=== PATIENT | female | born 1970 | race Caucasian/White ===

== ENCOUNTER 2020-01-25 11:30 | Outpatient (REF) | payer MEDICARE, MEDICAID, SELFPAY ==
[2020-01-26 10:59] LABS: BV Int Neg Control Negative (Negative); BV Int Pos Control Positive (Positive)
[2020-01-26 11:03] LABS: CT PCR NOT DETECTED (Not Detect.); NG PCR NOT DETECTED (Not Detect.)
[2020-01-28 07:42] LABS: HPV mRNA E6/E7 rflx Not Detected (Not Detected)
== END 2020-01-25 11:31 | disposition home or self-care (01) ==
LOC: HO.LAB 11:30
PROVIDERS: Visit Provider Advanced Practice Midwife
DX: Z01.419 Encounter for gynecological examination (general) (routine) without abnormal findings (principal); Z12.31 Encounter for screening mammogram for malignant neoplasm of breast; E66.9 Obesity, unspecified; F17.210 Nicotine dependence, cigarettes, uncomplicated; Z11.8 Encounter for screening for other infectious and parasitic diseases; Z11.3 Encounter for screening for infections with a predominantly sexual mode of transmission; Z80.41 Family history of malignant neoplasm of ovary
CPT/HCPCS: 87480; 87491; 87510; 87591; 87624; 87625; 87660; 88142

== ENCOUNTER 2020-02-08 15:07 | Outpatient (REF) | payer MEDICARE, MEDICAID, SELFPAY ==
--- NOTE | 2020-02-08 15:13 | US_ITS ---
EXAMINATION: ULTRASOUND PELVIS COMPLETE CLINICAL INFORMATION: Family history of ovarian cancer. COMPARISON: None TECHNIQUE: Transabdominal and transvaginal ultrasound the pelvis is performed. FINDINGS: The uterus is anteverted and anteflexed measuring 9.3 cm in length, 3.8 cm in AP and 5.9 cm in transverse dimension. Endometrial thickness is 0.32 cm. The uterus is homogeneous in echotexture. There are small nabothian cysts visualized. Right ovary measures 2.9 x 6.8 x 1.6 cm and volume 4.4 mL. There is a complex cyst or solid lesion measuring 2.0 x 1.7 x 1.7 cm. Left ovary is not seen. There is no free fluid in the cul-de-sac. US/US pelvic complete IMPRESSION: 1. Unremarkable uterus. 2. Complex cyst or solid mass right ovary. 3. Left ovary is not seen. 4. Consider follow-up ultrasound pelvis after 3 cycles.
--- NOTE | 2020-02-08 15:13 | US_ITS ---
EXAMINATION: ULTRASOUND PELVIS COMPLETE CLINICAL INFORMATION: Family history of ovarian cancer. COMPARISON: None TECHNIQUE: Transabdominal and transvaginal ultrasound the pelvis is performed. FINDINGS: The uterus is anteverted and anteflexed measuring 9.3 cm in length, 3.8 cm in AP and 5.9 cm in transverse dimension. Endometrial thickness is 0.32 cm. The uterus is homogeneous in echotexture. There are small nabothian cysts visualized. Right ovary measures 2.9 x 6.8 x 1.6 cm and volume 4.4 mL. There is a complex cyst or solid lesion measuring 2.0 x 1.7 x 1.7 cm. Left ovary is not seen. There is no free fluid in the cul-de-sac. US/US transvaginal IMPRESSION: 1. Unremarkable uterus. 2. Complex cyst or solid mass right ovary. 3. Left ovary is not seen. 4. Consider follow-up ultrasound pelvis after 3 cycles.
== END 2020-02-08 15:08 | disposition home or self-care (01) ==
LOC: HO.US 15:07
PROVIDERS: Visit Provider Advanced Practice Midwife
DX: Z01.419 Encounter for gynecological examination (general) (routine) without abnormal findings (principal); Z12.31 Encounter for screening mammogram for malignant neoplasm of breast; Z80.41 Family history of malignant neoplasm of ovary
CPT/HCPCS: 76830; 76856

== ENCOUNTER 2020-03-17 12:57 | Outpatient (REF) | payer MEDICARE, MEDICAID, SELFPAY ==
--- NOTE | 2020-03-17 13:01 | MM_ITS ---
EXAMINATION: MM SCREENING DIGITAL BREAST TOMOSYNTHESIS, BILATERAL CLINICAL INFORMATION: Screening. Asymptomatic. The lifetime risk of breast cancer based on the Tyrer-Cuzick Model is 11%. COMPARISON: Mammography: 08/18/2018, 01/14/2013, 06/22/2012 TECHNIQUE: Digital breast tomosynthesis is performed in both the craniocaudal and mediolateral oblique views along with computer-aided detection (CAD). Synthesized 2D images are generated from the tomosynthesis. FINDINGS: There are scattered areas of fibroglandular density (ACR BI-RADS breast composition Category b). Breast tissue composition borders on predominantly fatty. There are no significant masses, abnormal calcifications, or other abnormalities. There is low lying axillary tail node on the left similar to prior exams. MM/MM tomosynthesis screening BI IMPRESSION: No mammographic evidence of malignancy. ASSESSMENT: BI-RADS 2: Benign RECOMMENDATION: Routine annual mammography screening. This patient's information was entered into a reminder system with a target due date for their next mammogram.
== END 2020-03-17 12:58 | disposition home or self-care (01) ==
LOC: HO.MAMMO 12:57
PROVIDERS: Visit Provider Advanced Practice Midwife
DX: Z12.31 Encounter for screening mammogram for malignant neoplasm of breast (principal)
CPT/HCPCS: 77063; 77067

== ENCOUNTER 2020-05-07 10:57 | Outpatient (REF) | payer MEDICARE, MEDICAID, SELFPAY ==
--- NOTE | ~2020-05-07 | US_ITS ---
EXAMINATION: PELVIC ULTRASOUND CLINICAL INFORMATION: Family history of ovarian cancer COMPARISON: Previous exam February 2020 TECHNIQUE: Transabdominal and transvaginal pelvic ultrasound was performed. Transvaginal exam was performed for better visualization of the uterus and ovaries. FINDINGS: The inverted and measures 7.3 x 4 x 4.5 cm in dimension. No focal uterine lesion is seen. Endometrial thickness is normal measuring 0.9 cm. There are nabothian cysts in the cervix. The right ovary measures 2.2 x 2.1 x 2.5 cm. There is a 1.7 x 1.1 x 1.3 cm complex right ovarian cyst. This is irregularly shaped, has a slightly thickened wall and focal area of echogenic wall thickening. This probably represents an involuting cyst. The left ovary measures 1.8 x 1.2 x 1.5 cm. There may be a small calcification in the left ovary. There is no fluid in the pelvis. US/US transvaginal IMPRESSION: 1.7 x 1.1 x 1.3 cm irregularly-shaped complex right ovarian cyst probably representing an involuting cyst.
--- NOTE | ~2020-05-07 | US_ITS ---
EXAMINATION: PELVIC ULTRASOUND CLINICAL INFORMATION: Family history of ovarian cancer COMPARISON: Previous exam February 2020 TECHNIQUE: Transabdominal and transvaginal pelvic ultrasound was performed. Transvaginal exam was performed for better visualization of the uterus and ovaries. FINDINGS: The inverted and measures 7.3 x 4 x 4.5 cm in dimension. No focal uterine lesion is seen. Endometrial thickness is normal measuring 0.9 cm. There are nabothian cysts in the cervix. The right ovary measures 2.2 x 2.1 x 2.5 cm. There is a 1.7 x 1.1 x 1.3 cm complex right ovarian cyst. This is irregularly shaped, has a slightly thickened wall and focal area of echogenic wall thickening. This probably represents an involuting cyst. The left ovary measures 1.8 x 1.2 x 1.5 cm. There may be a small calcification in the left ovary. There is no fluid in the pelvis. US/US pelvic complete IMPRESSION: 1.7 x 1.1 x 1.3 cm irregularly-shaped complex right ovarian cyst probably representing an involuting cyst.
== END 2020-05-07 10:58 | disposition home or self-care (01) ==
LOC: HO.US 10:57
PROVIDERS: Visit Provider Advanced Practice Midwife
DX: N83.291 Other ovarian cyst, right side (principal); Z80.41 Family history of malignant neoplasm of ovary
CPT/HCPCS: 76830; 76856

== ENCOUNTER → 2020-05-16 07:44 | Outpatient (BNVA) | payer MEDICARE, MEDICAID, SELFPAY | PROVIDERS: PCP Internal Medicine; Visit Provider Physician Assistant | DX: Z13.89 Encounter for screening for other disorder (principal) | CPT/HCPCS: Q3014 ==

== ENCOUNTER → 2020-05-21 11:05 | Outpatient (BNVA) | payer MEDICARE, MEDICAID, SELFPAY | PROVIDERS: PCP Internal Medicine; Visit Provider Advanced Practice Midwife | DX: Z13.89 Encounter for screening for other disorder (principal) | CPT/HCPCS: Q3014 ==

== ENCOUNTER 2020-06-07 12:29 | Day surgery (SDC) | payer MEDICARE, MEDICAID, SELFPAY ==
[2020-06-01 11:23] VITALS: BMI 31.3
--- NOTE | 2020-06-06 10:07 | HO.ANESPROP2 ---
Documented by User: Aydee Perez 06/06/20 10:08 HPI - Anesthesia Eval Consult details Narrative: 49yo F for Upper Endoscopy and Colonoscopy PMFSH Active Problems Active Problems: All Active Problems (Updated 05/16/20 @ 08:45 by Kacy Yeh PA-C) Anxiety and depression (Acute) Encounter for screening colonoscopy (Acute) Nausea & vomiting (Acute) Ovarian mass, right (Acute) Obesity (BMI 30-39.9) (Acute) Cigarette smoker motivated to quit (Acute) Encounter for screening mammogram for malignant neoplasm of breast (Acute) Potential exposure to STD (Acute) Family hx of ovarian malignancy (Acute) Well woman exam with routine gynecological exam (Acute) Past Medical History Medical History Anxiety and depression Cigarette smoker motivated to quit Nausea & vomiting Obesity (BMI 30-39.9) Family History Family History Sister Ovarian cancer Colon cancer Paternal Grandmother History of breast cancer Surgical History Surgical History H/O foot surgery H/O hernia repair H/O lumpectomy Social History Social History Household Members: Family and Children Alcohol intake: current Alcohol intake frequency: holidays/special occasions only Smoking Status: Current every day smoker Tobacco Type: Cigarette Cigarettes Per Day: 10 Substance Use Type: Marijuana Advance Directives Date on File: 06/07/20 Current occupational status: unemployed Sexual orientation: Straight/Heterosexual Gender identity: female Meds Allergies Allergy/AdvReac Type Severity Reaction Status Date / Time No Known Allergies Allergy Verified 06/07/20 12:47 Home Medications Medication Instructions Recorded Confirmed Last Taken Type ascorbate calcium (vitamin C) 500 500 mg PO DAILY 04/16/20 05/21/20 06/07/20 05:00 History mg tablet calcium carbonate 300 mg (750 mg) 300 mg PO BID 04/16/20 05/21/20 06/07/20 05:00 History chewable tablet cbd oil BUCCAL 04/16/20 05/21/20 06/07/20 05:00 History cholecalciferol (vitamin D3) 50 50 mcg PO DAILY 04/16/20 05/21/20 06/07/20 05:00 History mcg (2,000 unit) capsule multivitamin 1 tab PO DAILY 04/16/20 05/21/20 Unknown History zinc acetate 50 mg (zinc) capsule 50 mg PO DAILY 04/16/20 05/21/20 06/07/20 05:00 History methadone 110 mg PO DAILY 06/07/20 06/07/20 Unknown History Exam Exam Date and Time: June 06, 2020 1007 Height,Weight and Vital Signs: Height 5 ft 7 in Weight 90.718 kg Assessment and Plan Assessment Anesthesia Assessment: Chart Reviewed Documented by User: Jaimee Gruber 06/13/20 13:12 PMFSH Past Medical History Medical History Anxiety and depression Cigarette smoker motivated to quit Nausea & vomiting Obesity (BMI 30-39.9) Family History Family History Sister Ovarian cancer Colon cancer Paternal Grandmother History of breast cancer Family history of problems with anesthesia: No Surgical History Surgical History H/O foot surgery H/O hernia repair H/O lumpectomy History of Problems with Anesthesia: No Social History Social History Household Members: Family and Children Alcohol intake: current Alcohol intake frequency: holidays/special occasions only Smoking Status: Current every day smoker Tobacco Type: Cigarette Cigarettes Per Day: 10 Substance Use Type: Marijuana Advance Directives Date on File: 06/07/20 Current occupational status: unemployed Sexual orientation: Straight/Heterosexual Gender identity: female Meds Allergies Allergy/AdvReac Type Severity Reaction Status Date / Time No Known Allergies Allergy Verified 06/07/20 12:47 Home Medications Medication Instructions Recorded Confirmed Last Taken Type ascorbate calcium (vitamin C) 500 500 mg PO DAILY 04/16/20 05/21/20 06/07/20 05:00 History mg tablet calcium carbonate 300 mg (750 mg) 300 mg PO BID 04/16/20 05/21/20 06/07/20 05:00 History chewable tablet cbd oil BUCCAL 04/16/20 05/21/20 06/07/20 05:00 History cholecalciferol (vitamin D3) 50 50 mcg PO DAILY 04/16/20 05/21/20 06/07/20 05:00 History mcg (2,000 unit) capsule multivitamin 1 tab PO DAILY 04/16/20 05/21/20 Unknown History zinc acetate 50 mg (zinc) capsule 50 mg PO DAILY 04/16/20 05/21/20 06/07/20 05:00 History methadone 110 mg PO DAILY 06/07/20 06/07/20 Unknown History Exam Height,Weight and Vital Signs: Vital Signs Temp Pulse Resp BP Pulse Ox 06/07/20 13:02 97.6 F 72 18 102/58 L 91 L Sats 89-91 on room air- up to 97% with deep breathing. No fever. Patient denies cough. Breathing not labored. Some wheezing on auscultation. Albuterol treatment ordered. S/p albuterol treatment, sats still drifting down to 88. Patient states tested for covid about 3 weeks ago as was going to [place] to visit mother. Test was negative. Not aware of contact or exposure to any sick patient. Patient placed on 2-3L NC. Covid test ordered and done. Negative. OK to proceed with procedure as asymptomatic. If low sats persist, may need to folow up with PCP as outpatient Airway Mallampati Class: II TM Dist: >3cm Neck ROM: Full Heart: RRR Lungs: CTAB Assessment and Plan Assessment Anesthesia Assessment: Anesthesia Plan Discussed and Chart Reviewed Final Anesthetic Review NPO: Yes ASA Class: III Final Preanesthetic Review: No Changes in Pt Med Stat, Meds/Allgs Chart Reviewed, Consent Obtained/Reviewed and Anes Risks/Benef Reviewed Patient Risk: Low Procedure Risk: Low Assessment/Block/Sedation in SS: Assess/Block/Sedation-SS Anesthetic Plan Anesthetic Plan: MAC: Disposition: Standard PACU Documented by User: Andre Hollis 06/07/20 14:32 COUNTS INCLUDE 234 BEDS AT THE [facility] Past Medical History Medical History Anxiety and depression Cigarette smoker motivated to quit Nausea & vomiting Obesity (BMI 30-39.9) Family History Family History Sister Ovarian cancer Colon cancer Paternal Grandmother History of breast cancer Surgical History Surgical History H/O foot surgery H/O hernia repair H/O lumpectomy Social History Social History Household Members: Family and Children Alcohol intake: current Alcohol intake frequency: holidays/special occasions only Smoking Status: Current every day smoker Tobacco Type: Cigarette Cigarettes Per Day: 10 Substance Use Type: Marijuana Advance Directives Date on File: 06/07/20 Current occupational status: unemployed Sexual orientation: Straight/Heterosexual Gender identity: female Meds Allergies Allergy/AdvReac Type Severity Reaction Status Date / Time No Known Allergies Allergy Verified 06/07/20 12:47 Home Medications Medication Instructions Recorded Confirmed Last Taken Type ascorbate calcium (vitamin C) 500 500 mg PO DAILY 04/16/20 05/21/20 06/07/20 05:00 History mg tablet calcium carbonate 300 mg (750 mg) 300 mg PO BID 04/16/20 05/21/20 06/07/20 05:00 History chewable tablet cbd oil BUCCAL 04/16/20 05/21/20 06/07/20 05:00 History cholecalciferol (vitamin D3) 50 50 mcg PO DAILY 04/16/20 05/21/20 06/07/20 05:00 History mcg (2,000 unit) capsule multivitamin 1 tab PO DAILY 04/16/20 05/21/20 Unknown History zinc acetate 50 mg (zinc) capsule 50 mg PO DAILY 04/16/20 05/21/20 06/07/20 05:00 History methadone 110 mg PO DAILY 06/07/20 06/07/20 Unknown History Exam Airway Mallampati Class: III TM Dist: >3cm Neck ROM: Full Heart: [id number] Lungs: decreasebreath sounds b/l Assessment and Plan Assessment Anesthesia Assessment: Anesthesia Plan Discussed, PAT Visit and Chart Reviewed Final Anesthetic Review NPO: Yes ASA Class: II Final Preanesthetic Review: No Changes in Pt Med Stat, Meds/Allgs Chart Reviewed, Consent Obtained/Reviewed and Anes Risks/Benef Reviewed Patient Risk: Intermediate Procedure Risk: Low Assessment/Block/Sedation in SS: Assess/Block/Sedation-SS Anesthetic Plan Anesthetic Plan: MAC: and Regional Block Disposition: Standard PACU
[2020-06-07 13:02] VITALS: BP 102/58; PULSE 72; RESP 18; TEMP 36.4; O2SAT 91
--- NOTE | 2020-06-07 13:12 | PC.NURSE ---
DR. MARSHALL FROM ANESTHESIA ASSESSED PATIENT R/T HER O2 SATS 91 PERCENT RA. 02 SATS CAME UP WITH DEEP BREATHING. LUNGS SOUNDS WITH SOME WHEEZING. NEBULIZER TXMENT ORDERED.
[2020-06-07] MEDS: Albuterol Sulfate (0.083%) 2.5 MG/3 ML VIAL.NEB INHALE (13:30)
--- NOTE | 2020-06-07 13:35 | MHC.SHP ---
Pre-Procedural Eval Section B Chief Complaint: screening,nausea Details of Present Illness: FH of ovarian and colon cancer in sister, unknown if she had drake syndrome Relevant Family History (Specify if Yes): Yes Relevant Social History: Tobacco Use Present Medications: see Short Stay Collaborative assessment Medical History: Significant History (Anxiety and depression Cigarette smoker motivated to quit Nausea & vomiting Obesity (BMI 30-39.9)) History of Previous Operations: Relevant previous surgery/procedure and date(s) (H/O foot surgery H/O hernia repair H/O lumpectomy) Allergies: Allergies Allergy/AdvReac Type Severity Reaction Status Date / Time No Known Allergies Allergy Verified 06/07/20 12:47 Review of Systems Sugical H&P ROS: Negative: Constitution, Cardiovascular, Respiratory, Neurological, Psychiatric, Hem-Onc, Allergic/Immunologic, Gastrointestinal, Genitourinary, Musculoskeletal, Integumentary, Endocrine and Eyes/Ears/Nose/Throat Exam Surgical H&P Exam: Normal: HEENT, Normal: Heart, Normal: Lungs, Normal: Extremities, Normal: Abdomen, Normal: Skin and Normal: Neurological Plan Diagnosis/Plan: Unchanged I have reviewed the history and physical and performed a pertinent physical examination on my patient. No changes have occurred unless specified.
--- NOTE | 2020-06-07 13:37 | PM.OP ---
Brief Operative Note Date of Service: 06/07/20 Pre-op diagnosis: nausea, FH of ovarian and colon ca Post-op diagnosis: same Procedure: see op note Surgeon: Dino Tang MD Anesthesia: MAC Estimated blood loss (mL): 0 Condition: stable Disposition: PACU
--- NOTE | 2020-06-07 13:38 | W.PM.OPN ---
Operative Note Operative Note Date of Service: 06/07/20 Narrative: EGD not done today due to cold sx and borderline O2 sats COLONOSCOPY Instrument: Olympus variable stiffness ADULT scope 190L Colonoscopy Monitoring: Vital signs and clinical assessment, continuous EKG monitoring, Pulse oximetry, Carbon Dioxide monitoring and blood pressure monitoring were done throughout the procedure. Colon withdrawal time was 25 minutes. Procedure: The patient was placed in the left lateral decubitis position and pre-procedure medications were administered. After a digital rectal examination of the ano-rectum, the video colonoscope was inserted into the rectum and advanced through the colon to the cecum/TI. The colonoscope was slowly withdrawn in a retrograde panoramic fashion and the colon mucosa was carefully examined including a retroflexed view of the rectum. Findings and interventions are described below. Procedure Difficulty:easy Findings: Terminal Ileum-normal Cecum:normal Ascending Colon: normal Transverse Colon -normal Descending Colon:normal Sigmoid Colon: normal Rectum: Retroflexion with small internal hemorrhoids, grade I Anorectum - normal Colon preparation: [place] Bowel Preparation Scale Right colon; 2 Transverse colon: 1 Left colon; 1 (0 = Unprepared colon segment with mucosa not seen due to solid stool that cannot be cleared. 1 = Portion of mucosa of the colon segment seen, but other areas of the colon segment not well seen due to staining, residual stool and/or opaque liquid. 2 = Minor amount of residual staining, small fragments of stool and/or opaque liquid, but mucosa of colon segment seen well. 3 = Entire mucosa of colon segment seen well with no residual staining, small fragments of stool or opaque liquid) Impression and Post Procedure Diagnosis: Colonoscopy Findings: internal hemorrhoids poor prep inspite of extensive cleansing Plan: Repeat Colonoscopy in 6 months or earlier if clinically indicated High fiber diet leaflet avoid straining at stool, epsom salts and sitz bath, anusol supps or cream as needed review prep instructions Above findings were reviewed with the patient and relevant handouts were provided if indicated.
[2020-06-07 13:41] VITALS: PULSE 60; O2SAT 88
--- NOTE | 2020-06-07 13:42 | PC.NURSE ---
PATIENT RECEIVING A RESPIRATORY TREATMENT AT THIS TIME. PATIENT MOVED TO THE ISOLATION ROOM TO RECEIVE HER TREATMENT.
--- NOTE | 2020-06-07 13:53 | PC.NURSE ---
PATIENT RECEIVED A NEBULIZER TREATMENT PER ORDER. 02 SATS RA [address]%. [address] MARSHALL ORDERED A CXR.
--- NOTE | 2020-06-07 14:03 | PC.NURSE ---
PATIENT PLACED ON 02 2LPM VIA NC R/T 02 SATS 90 TO 92%.
--- NOTE | 2020-06-07 14:14 | PC.NURSE ---
RAPID COVID TEST COMPLETED AND BROUGHT TO LAB.
[2020-06-07 14:36] LABS: COVID-19 Test Negative (Negative); IDNOW Serial# 9DD0AD1C
--- NOTE | 2020-06-07 14:38 | PC.NURSE ---
COVID NEGATIVE. PT GOING INTO PROCEDURE.
[2020-06-07] MEDS: Lactated Ringers 1,000 ML 100 ML IVCONT (14:40)
[2020-06-07 15:29] VITALS: BP 93/43; PULSE 56; RESP 14; TEMP 36.8; O2SAT 91
[2020-06-07 15:44] VITALS: BP 109/61; PULSE 59; RESP 18; O2SAT 96
[2020-06-07 15:59] VITALS: BP 110/71; PULSE 58; RESP 20; TEMP 36.9; O2SAT 93
== END 2020-06-07 16:39 | disposition home or self-care (01) ==
PROVIDERS: Anesthesiology; PCP Internal Medicine; Visit Provider Internal Medicine Gastroenterology
PROC: (CPT G0105; principal; 2020-06-07 13:40)
DX: Z12.11 Encounter for screening for malignant neoplasm of colon (principal); Z80.0 Family history of malignant neoplasm of digestive organs; K64.0 First degree hemorrhoids; J00 Acute nasopharyngitis [common cold]; R09.02 Hypoxemia; E66.9 Obesity, unspecified; F17.210 Nicotine dependence, cigarettes, uncomplicated; Z20.822 Contact with and (suspected) exposure to COVID-19
CPT/HCPCS: G0105; 36415; 87635; 94640; 94644; J3010

== ENCOUNTER → 2020-06-28 13:00 | Outpatient (BNVA) | payer MEDICARE, MEDICAID, SELFPAY | PROVIDERS: PCP Internal Medicine; Visit Provider Physician Assistant | DX: Z13.89 Encounter for screening for other disorder (principal) | CPT/HCPCS: Q3014 ==

== ENCOUNTER 2021-02-27 10:25 | Outpatient (REF) | payer MEDICARE, MEDICAID, SELFPAY ==
[2021-02-27 15:23] LABS: CT PCR NOT DETECTED (Not Detect.); NG PCR NOT DETECTED (Not Detect.)
[2021-02-28 09:35] LABS: BV Int Neg Control Negative (Negative); BV Int Pos Control Positive (Positive)
== END 2021-02-27 10:26 | disposition home or self-care (01) ==
LOC: HO.LAB 10:25
PROVIDERS: PCP Internal Medicine; Visit Provider Advanced Practice Midwife
DX: Z01.411 Encounter for gynecological examination (general) (routine) with abnormal findings (principal); N83.8 Other noninflammatory disorders of ovary, fallopian tube and broad ligament; Z20.2 Contact with and (suspected) exposure to infections with a predominantly sexual mode of transmission; Z80.41 Family history of malignant neoplasm of ovary; Z87.891 Personal history of nicotine dependence
CPT/HCPCS: 87480; 87491; 87510; 87591; 87660

== ENCOUNTER 2021-09-03 08:49 | Outpatient (REF) | payer MEDICARE, MEDICAID, SELFPAY ==
--- NOTE | ~2021-09-03 | XR_ITS ---
EXAMINATION: XR HAND, RIGHT XR HAND, LEFT CLINICAL INFORMATION: Primary osteoarthritis hand. COMPARISON: None TECHNIQUE: Right hand is imaged in 4 views. The left hand is imaged in 3 views. There are total of 7 views. FINDINGS: Right: Normal bony mineralization. No periarticular demineralization. No fracture or destructive process. Ulnar variance is neutral. The carpus shows no joint narrowing or erosive changes or chondrocalcinosis. The MCP joints show no narrowing or erosive change. The interphalangeal joints are unremarkable. Left: Normal bony mineralization. No periarticular demineralization. No fracture or destructive process. Ulnar variance is neutral. The carpus shows no joint narrowing or erosive changes or chondrocalcinosis. The MCP joints show no narrowing or erosive change. The interphalangeal joints are unremarkable. XR/XR hand RT min 3V IMPRESSION: No focal joint narrowing or erosive change.
--- NOTE | ~2021-09-03 | XR_ITS ---
EXAMINATION: XR HAND, RIGHT XR HAND, LEFT CLINICAL INFORMATION: Primary osteoarthritis hand. COMPARISON: None TECHNIQUE: Right hand is imaged in 4 views. The left hand is imaged in 3 views. There are total of 7 views. FINDINGS: Right: Normal bony mineralization. No periarticular demineralization. No fracture or destructive process. Ulnar variance is neutral. The carpus shows no joint narrowing or erosive changes or chondrocalcinosis. The MCP joints show no narrowing or erosive change. The interphalangeal joints are unremarkable. Left: Normal bony mineralization. No periarticular demineralization. No fracture or destructive process. Ulnar variance is neutral. The carpus shows no joint narrowing or erosive changes or chondrocalcinosis. The MCP joints show no narrowing or erosive change. The interphalangeal joints are unremarkable. XR/XR hand LT min 3V IMPRESSION: No focal joint narrowing or erosive change.
== END 2021-09-03 08:50 | disposition home or self-care (01) ==
LOC: HO.XRAY 08:49
PROVIDERS: PCP Internal Medicine; Visit Provider Internal Medicine Rheumatology
DX: M19.041 Primary osteoarthritis, right hand (principal); M19.042 Primary osteoarthritis, left hand; R20.0 Anesthesia of skin; Z79.899 Other long term (current) drug therapy
CPT/HCPCS: 73130; 99202

== ENCOUNTER 2021-11-21 10:12 | Outpatient (REF) | payer MEDICARE, MEDICAID, SELFPAY ==
[2021-11-22 13:02] LABS: BV Int Neg Control Negative (Negative); BV Int Pos Control Positive (Positive)
[2021-11-22 13:03] LABS: CT PCR NOT DETECTED (Not Detect.); NG PCR NOT DETECTED (Not Detect.)
== END 2021-11-21 10:13 | disposition home or self-care (01) ==
LOC: HO.LNP 10:12
PROVIDERS: Visit Provider Advanced Practice Midwife
DX: Z11.3 Encounter for screening for infections with a predominantly sexual mode of transmission (principal); N95.1 Menopausal and female climacteric states; N93.9 Abnormal uterine and vaginal bleeding, unspecified; N83.8 Other noninflammatory disorders of ovary, fallopian tube and broad ligament; Z80.41 Family history of malignant neoplasm of ovary
CPT/HCPCS: 87480; 87491; 87510; 87591; 87660; 99212

== ENCOUNTER 2021-12-12 13:14 | Outpatient (REF) | payer MEDICARE, MEDICAID, SELFPAY ==
--- NOTE | 2021-12-12 10:00 | EMG_ITS ---
Bilateral median and ulnar motor and sensory studies were performed. Bilateral radial sensory studies were performed and paraspinal muscles were tested with a needle. IMPRESSION: 1. 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 2. Bilateral Otoniel Price anastomosis, normal variant. MD CLOVER Hull/MARGUERITE / [id number]
== END 2021-12-12 13:15 | disposition home or self-care (01) ==
LOC: HO.NEURO 13:14
PROVIDERS: Visit Provider Internal Medicine Rheumatology
DX: R20.0 Anesthesia of skin (principal)
CPT/HCPCS: 95886; 95911

== ENCOUNTER 2022-01-06 10:58 | Outpatient (REF) | payer MEDICARE, MEDICAID, SELFPAY ==
--- NOTE | ~2022-01-06 | US_ITS ---
EXAMINATION: US PELVIS CLINICAL INFORMATION: Follow-up ovarian cyst COMPARISON: Previous pelvic ultrasound May 2020 TECHNIQUE: Ultrasound of the pelvis is performed using both transabdominal and transvaginal transducers along with Doppler. Transvaginal imaging is performed due to inadequate visualization transabdominally. FINDINGS: The uterus is anteverted and measures 7.8 x 4 x 4.9 cm in dimension. There is a 1.1 x 1 x 0.9 cm hypoechoic lesion in the left upper uterine body suggestive of a fibroid. No other focal uterine lesion. Endometrial thickness is normal measuring 1.3 cm. There are small nabothian cysts in the cervix. The right ovary is not seen. The left ovary measures 1.6 x 1.7 x 1.8 cm. There is a small nonspecific echogenic focus in the left ovary. This is similar to May 2020 exam and may represent a small calcification. There is no fluid in the pelvis. US/US pelvic and transvaginal IMPRESSION: Right ovary not seen. No right adnexal or left ovarian cyst. Small uterine fibroid.
== END 2022-01-06 10:59 | disposition home or self-care (01) ==
LOC: HO.US 10:58
PROVIDERS: Visit Provider Advanced Practice Midwife
DX: N83.8 Other noninflammatory disorders of ovary, fallopian tube and broad ligament (principal); N93.9 Abnormal uterine and vaginal bleeding, unspecified; N95.1 Menopausal and female climacteric states; Z80.41 Family history of malignant neoplasm of ovary
CPT/HCPCS: 76830; 76856

== ENCOUNTER 2022-01-11 09:36 | Outpatient (REF) | payer MEDICARE, MEDICAID, SELFPAY ==
[2022-01-13 05:16] LABS: HBsAGNum1 0.16 S/CO (0.00-0.99); HIV AB/AG Nonreactive (Nonreactive); HIV Num 1 0.07 S/CO (0.00-0.99); Hepatitis B Surface Antigen Negative (Negative); ~HepC Num1 2.35 S/CO (0.00-0.79); ~Hepatitis C Antibody Reactive (Nonreactive)
[2022-01-13 05:33] LABS: Syphilis Screen Nonreactive (Nonreactive)
== END 2022-01-11 09:37 | disposition home or self-care (01) ==
LOC: HO.LAB 09:36
PROVIDERS: PCP Internal Medicine; Visit Provider Advanced Practice Midwife
DX: Z01.419 Encounter for gynecological examination (general) (routine) without abnormal findings (principal); Z11.4 Encounter for screening for human immunodeficiency virus [HIV]
CPT/HCPCS: 36415; 86780; 86803; 87340; 87389

== ENCOUNTER 2022-01-15 09:43 | Outpatient (REF) | payer MEDICARE, MEDICAID, SELFPAY | END 2022-01-15 09:44 | disposition home or self-care (01) | LOC: HO.LNP 09:43 | PROVIDERS: Visit Provider Advanced Practice Midwife | DX: N93.9 Abnormal uterine and vaginal bleeding, unspecified (principal) | CPT/HCPCS: 58100; 81025; 88305; 99212 ==

== ENCOUNTER → 2022-01-20 09:55 | Outpatient (BNVA) | payer MEDICARE, MEDICAID, SELFPAY | PROVIDERS: PCP Internal Medicine; Visit Provider Advanced Practice Midwife | DX: N95.1 Menopausal and female climacteric states (principal); N93.9 Abnormal uterine and vaginal bleeding, unspecified | CPT/HCPCS: Q3014 ==

== ENCOUNTER 2022-05-30 08:19 | Outpatient (REF) | payer MEDICARE, MEDICAID, SELFPAY ==
--- NOTE | ~2022-05-30 | MM_ITS ---
EXAMINATION: MM SCREENING DIGITAL BREAST TOMOSYNTHESIS, BILATERAL CLINICAL INFORMATION: Screening. Asymptomatic. The lifetime risk of breast cancer based on the Tyrer-Cuzick Model is 6%. COMPARISON: Mammography: 03/17/2020, 08/18/2018, 01/14/2013, 06/22/2012 TECHNIQUE: Digital breast tomosynthesis is performed in both the craniocaudal and mediolateral oblique views along with computer-aided detection (CAD). Synthesized 2D images are generated from the tomosynthesis. FINDINGS: There are scattered areas of fibroglandular density (ACR BI-RADS breast composition Category b). There are no significant masses, abnormal calcifications, or other abnormalities. Background stromal and fibroglandular densities are similar to prior studies. No developing density. No architectural abnormality. The axilla and skin contours are unremarkable. MM/MM tomosynthesis screening BI IMPRESSION: No mammographic evidence of malignancy. ASSESSMENT: BI-RADS 1: Negative RECOMMENDATION: Routine annual mammography screening. This patient's information was entered into a reminder system with a target due date for their next mammogram.
== END 2022-05-30 08:20 | disposition home or self-care (01) ==
LOC: HO.MAMMO 08:19
PROVIDERS: PCP Internal Medicine; Visit Provider Internal Medicine
DX: Z12.31 Encounter for screening mammogram for malignant neoplasm of breast (principal)
CPT/HCPCS: 77063; 77067

== ENCOUNTER 2022-11-18 11:13 | Outpatient (AMB) | payer MEDICARE, MEDICAID, SELFPAY ==
[2022-11-18 11:16] VITALS: BP 142/90; BMI 36.5
--- NOTE | 2022-11-18 11:16 | MHC.OFFVIS ---
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 She is not having any abnormal discharge but she just wants to get checked because now she is wondering if she still has it she would like STI check while she is add it but she has no specific concerns. She and her sister still care for her mother and father who are elderly. She is involved with her old boyfriend, they reunited after many years after her . Over the last year she feels like that with 1 thing in another she has given up her walks and has gained a lot of weight and she does not feel good about it and wants to get back to her keto and is considering vegetarian diet as well though she is less sure of that. She believes she is due for mammogram her primary is Dr. Carranza. [facility] Medical History ELIAZAR (generalized anxiety disorder) Polyarthralgia Screening for diabetes mellitus Anxiety and depression Nausea & vomiting Obesity (BMI 30-39.9) Cigarette smoker motivated to quit Surgical History Hx of colonoscopy H/O hernia repair H/O lumpectomy H/O foot surgery Family History Sister Ovarian cancer Colon cancer Paternal Grandmother History of breast cancer Father Diabetes Family/Other Substance use disorder Mental health disorder Social History Household Members: Children Household Members Other:: Housing: Apartment Alcohol intake: current Alcohol intake frequency: a few times a month Alcohol type: wine Patient Tobacco Use Status: Former Tobacco user Quit Date: one month Tobacco use type: Cigarette e-Cigarette/Vaping Use: Never Used Second Hand Smoke Exposure: No Substance Use Type: Marijuana Advance Directives Date on File: 06/07/20 service: No Current occupational status: disabled Sexual orientation: Straight/Heterosexual Gender identity: Female Female Reproductive History Menstrual Age of Menarche: 15 Duration of menses: <3 days Date of last menstrual period: 11/05/22 control method: none Total pregnancies: 3 Full term: 1 Number of Living Children: 1 Ab induced: 1 Ab spontaneous: 1 Physical Exam Vital Signs: Last Vital Signs BP 142/90 H 11/18/22 11:16 BMI result Body Mass Index 36.5 Const General: healthy appearing, comfortable, no acute distress, well developed and alert Nutritional Appearance: average body habitus and obese Orientation/consciousness: patient oriented x3 Limitations: no limitations HEENT Head: Yes normocephalic Neck Neck: Yes normal visual inspection Chest Chest palpation & inspection: normal inspection of the chest Breast/axilla inspection: normal inspection of the breasts and normal inspection of the axillae Breast/axilla palpation: normal palpation of the breasts and normal palpation of the axillae Resp Effort & Inspection: normal respiratory effort GI Inspection: Yes normal to inspection, No Abdominal wall edema and No distended Palpation (GI): Soft to palpation and nontender General: Yes bladder normal to palpation External Female Exam: normal external appearance and normal appearance of the urethra Speculum Exam - Vagina: normal appearance of the vagina, normal palpation and normal vaginal discharge Speculum Exam - Cervix: normal appearance of the cervix, normal palpation and nontender Bimanual exam- vagina & uterus: normal bimanual exam, normal palpation, uterine size normal, bladder normal to palpation, consistency normal, normal palpation, uterine mobility normal, uterine shape normal, No Cervical tenderness present, non-tender and no cervical motion tenderness Bimanual Exam- Adnexa, other: normal adnexae, no masses, normal and No adnexal tenderness Neuro General: patient oriented x3 Results Reviewed Results Reviewed: Name: JeyRadhika irizarrykai Huynh Specimen #: [id number] Age/Sex: 49/F Attending: Etelvina Dick CNM : 1970 Submitted by: Etelvina Dick CNM Collected: 01/25/20 MR #: [id number] Received: 01/26/20 Status: DEP REF Location: .LAB Interpretation Satisfactory for evaluation. Negative for intraepithelial lesion or malignancy. HPV mRNA E6/E7: Not Detected This assay detects E6/E7 viral messenger RNA (mRNA) from 14 high-risk HPV types (16, 18, 31, 33, 35, 39, 45, 51, 52, 56, 58, 59, 66, 68) HPV testing performed by [facility], [place], [place]. See reference laboratory portion of the EMR for entire report. Clinical Information LMP: 01/06/20 Previous PAP test: 2013, wnl Material Received ThinPrep cervical Electronically Signed By: ISRA Pereira (ASCP) 02/15/20 1453 The Pap Test is a screening procedure with the inherent possibility of both false negative and false positive results. Results should be interpreted in the context of historic and current clinical findings. Reliability of the Pap Test is enhanced by performing the test on a regular repetitive basis. Patient: Carlene Khanna Age/Sex: 49/F MR#: [id number] Page 1 of 1 Name: Carlene Khanna Age/Sex: 51/F Attending: Etelvina Dick CNM : 1970 Submitted by: Etelvina Dick CNM Copies to: MR #: [id number] Status: DEP REF Collected: 01/15/22 Location: [facility] Received: 01/15/22 Diagnosis Endometrium, biopsy: Few superficial fragments of benign endometrium; background blood and mucoinflammatory material. COMMENT: Consider repeat sampling, as clinically appropriate. Clinical History Abnormal uterine bleeding Microscopic Description Microscopic sections reviewed. Material Received EMB Gross Description Received in formalin labeled EMB' is a 2.0 x 2.0 x 0.5 cm. aggregate of predominantly clear and cloudy, lara-white mucus and red-maroon blood with minute shards of congested and hemorrhagic, red-maroon tissue. The specimen is submitted in toto in a single cassette labeled A. CEDS NOTE: Some or all of the immunohistochemical tests reported herein may have been developed and their performance characteristics determined by [facility]. They have not been cleared or approved by the U.S. Food and Drug Administration (FDA). However, the FDA has determined that such clearance or approval is not necessary. This laboratory is certified under the Clinical Laboratory Improvement Amendments of 1988 (CLIA) as qualified to perform high complexity clinical laboratory testing. Electronically Signed By: Delfino Blue MD 01/16/22 1602 Patient: Carlene Khanna Age/Sex: 51/F MR#: [id number] Page 1 of 1 Patient: Carlene Khanna MR#: [id number] : 1970 Acct:[id number] Age/Sex: 51 / F ADM Date: 01/06/22 Loc: .[place] Attending Dr: Etelvina Dick CNM Ordering Physician: Etelvina Dick CNM Date of Service: 01/06/22 Procedure(s): US pelvic and transvaginal Accession Number(s): [id number] cc: Etelvina Dick CNM~ EXAMINATION: US PELVIS CLINICAL INFORMATION: Follow-up ovarian cyst COMPARISON: Previous pelvic ultrasound May 2020 TECHNIQUE: Ultrasound of the pelvis is performed using both transabdominal and transvaginal transducers along with Doppler. Transvaginal imaging is performed due to inadequate visualization transabdominally. FINDINGS: The uterus is anteverted and measures 7.8 x 4 x 4.9 cm in dimension. There is a 1.1 x 1 x 0.9 cm hypoechoic lesion in the left upper uterine body suggestive of a fibroid. No other focal uterine lesion. Endometrial thickness is normal measuring 1.3 cm. There are small nabothian cysts in the cervix. The right ovary is not seen. The left ovary measures 1.6 x 1.7 x 1.8 cm. There is a small nonspecific echogenic focus in the left ovary. This is similar to May 2020 exam and may represent a small calcification. There is no fluid in the pelvis. US/US pelvic and transvaginal IMPRESSION: Right ovary not seen. No right adnexal or left ovarian cyst. Small uterine fibroid. Dictated By: Fern Mcdaniels MD Signed By: <Electronically signed by Fern Mcdaniels MD in OV> 01/10/22 1345 DD/ 1143 TD/TT: Irrigation Technician: SAPNA Assessment & Plan Assessment & Plan (1) Perimenopause: Code(s): N95.1 - Menopausal and female climacteric states (2) Cervical cancer screening: Comment: Negative Pap 2020 previous screening 2012. Code(s): Z12.4 - Encounter for screening for malignant neoplasm of cervix (3) Well woman exam with routine gynecological exam: Code(s): Z01.419 - Encounter for gynecological examination (general) (routine) without abnormal findings (4) Potential exposure to STD: Code(s): Z20.2 - Contact with and (suspected) exposure to infections with a predominantly sexual mode of transmission (5) Obesity (BMI 30-39.9): Code(s): E66.9 - Obesity, unspecified (6) Screen for sexually transmitted diseases: Code(s): Z11.3 - Encounter for screening for infections with a predominantly sexual mode of transmission (7) Breast cancer screening: Code(s): Z12.39 - Encounter for other screening for malignant neoplasm of breast Plan -----Discussed in this visit the following: healthy balanced diet, regular and consistent exercise, getting recommended health screens, doing the best she can for her particular health concerns, kegel exercises, pap smear screening and followup recommendations, mammography screening and SBE, normal changes in cycles in her life stage--- .---Discussed the current research around the phenomena of bacterial vaginosis, and the many factors involved in the increase and change in the prevalence of certain bacteria in the vagina, that contribute to the clingy discharge, the fishy malodor, and the discomfort, that many women experience very frequently in their lives. Discussed the many factors that can promote it, and current thinking about best options for treatment of both the a 1 time episode, or frequently occurring episodes. Discussed the role of partner condom use. Discussed that previously, treatment was recommended for both partners, but is not currently recommended today in 2022. Discussed the testing involved. ---Discussed normal changes that happen premenapausally, perimenapausally, and postmenopausally, and ways to handle them. Discussed the normal variation, and the range of experiences that women experience. Discussed nutrition, health, need for exercise, both weight-bearing and aerobic. Also discussed the normal changes that happen with vaginal mucosal thinning and sensitivity, and simple more natural ways of handling these challenges. Discussed in general terms the challenges of obesity and challenges for her health and efforts she is engaging in to manage this including dietary changes water intake attention to sleep inclusion of a regular exercise have it and dealing with the may need stressors of life that can contribute to obesity in general. Encouraged her to continue in all have her best efforts Patient will schedule her mammogram. She is going to work on weight loss with her best efforts and self-care. Offered other STI testing but she does not feel a need. Discussed that Gardnerella as a common finding on these tests and does not always have to be treated. Expect menopausal changes to continue in the next coming months and years. Orders: Orders Bacterial Vaginosis Panel Today Z01.419 - Encounter for gynecological examination (general) (routine) without abnormal findings CT NG by PCR Today Z01.419 - Encounter for gynecological examination (general) (routine) without abnormal findings Pap Smear Today Z01.419 - Encounter for gynecological examination (general) (routine) without abnormal findings Coding Level of Care Code Est Pt Prev Care 40-64y(64203) Diagnoses Perimenopause N95.1 Cervical cancer screening Z12.4 Well woman exam with routine gynecological exam Z01.419 Potential exposure to STD Z20.2 Obesity (BMI 30-39.9) E66.9 Screen for sexually transmitted diseases Z11.3 Breast cancer screening Z12.39
== END 2022-11-18 13:04 | disposition home or self-care (01) ==
PROVIDERS: Visit Provider Advanced Practice Midwife
DX: Z01.419 Encounter for gynecological examination (general) (routine) without abnormal findings (principal); N95.1 Menopausal and female climacteric states; Z20.2 Contact with and (suspected) exposure to infections with a predominantly sexual mode of transmission; E66.9 Obesity, unspecified; Z68.36 Body mass index [BMI] 36.0-36.9, adult
CPT/HCPCS: 99396

== ENCOUNTER 2022-11-18 11:13 | Outpatient (REF) | payer MEDICARE, MEDICAID, SELFPAY ==
[2022-11-19 07:23] LABS: CT PCR NOT DETECTED (Not Detect.); NG PCR NOT DETECTED (Not Detect.)
[2022-11-19 15:12] LABS: BV Int Neg Control Negative (Negative); BV Int Pos Control Positive (Positive)
[2022-11-22 03:34] LABS: HPV mRNA E6/E7 rflx Not Detected (Not Detected)
== END 2022-11-18 11:14 | disposition home or self-care (01) ==
LOC: HO.LNP 11:13
PROVIDERS: Visit Provider Advanced Practice Midwife
DX: Z01.419 Encounter for gynecological examination (general) (routine) without abnormal findings (principal); Z11.51 Encounter for screening for human papillomavirus (HPV); N95.1 Menopausal and female climacteric states; Z20.2 Contact with and (suspected) exposure to infections with a predominantly sexual mode of transmission
CPT/HCPCS: 0353U; 87480; 87510; 87624; 87660; 88142

== ENCOUNTER 2023-01-13 15:28 | Outpatient (AMB) | payer MEDICARE, MEDICAID, SELFPAY ==
--- NOTE | 2023-01-13 15:40 | A.OFFPC_ITS ---
Vital Signs 3 01/13/23 15:42 01/13/23 15:55 Height 5 ft 7 in Weight 234 lb 4 oz BMI 36.7 BP 120/72 Blood Pressure Location Lt brachial Position Sitting Pulse 88 Pulse Source Pulse Oximeter Pulse Oximetry (%) 88 L 94 Oxygen Delivery Method Room Air Room Air Intake Visit Reasons: Skull Soft Spot/ Dents/ Bumps Intake Note: Patient is here today for bumps on top of head, and pain on both side of flank on going for several months. Aquatics Manager Required: No Rn Acute Dialysis: Not Required per policy Accompanied by: Self / Same As Patient Allergies No Known Allergies Allergy (Verified 01/13/23 15:53) Medication List - Last Reconciled 01/13/23 by SRIRAM Zheng ascorbate calcium (vitamin C) 500 mg PO DAILY calcium carbonate (Tums) 300 mg PO BID [cbd oil buccal] cholecalciferol (vitamin D3) 50 mcg PO DAILY methadone 110 mg PO DAILY multivitamin 1 tab PO DAILY ondansetron 8 mg PO Q12H PRN 7 days [thc gummies buccal] zinc acetate (Galzin) 50 mg PO DAILY Tobacco use date assessed: 01/13/23 Dental Screening Dental Screen Date: 01/13/23 Did you have a dental visit in the last 12 months?: No Did you have a dental problem in the last 6 months where you did not have access to dental care?: No Was dental information given to patient?: No HPI Skull Soft Spot/ Dents/ Bumps 2 HPI0 Details Patient is a 52-year-old female who presents today for the same day visit due to bumps on her scalp that she noticed couple days ago. She also reports bilateral flank pain intermittent pain for the past several months, reports history of kidney stones, denies any urinary symptoms. Denies flank pain in the office today. No shortness of breath or chest pain. Patient of Dr. Esposito. [facility] Medical History ELIAZAR (generalized anxiety disorder) Polyarthralgia Screening for diabetes mellitus Anxiety and depression Nausea & vomiting Obesity (BMI 30-39.9) Cigarette smoker motivated to quit Surgical History Hx of colonoscopy H/O hernia repair H/O lumpectomy H/O foot surgery Family History Sister Ovarian cancer Colon cancer Paternal Grandmother History of breast cancer Father Diabetes Family/Other Substance use disorder Mental health disorder Social History Household Members: Children Household Members Other:: Housing: Apartment Alcohol intake: current Alcohol intake frequency: a few times a month Alcohol type: wine Patient Tobacco Use Status: Former Tobacco user Quit Date: one month Tobacco use type: Cigarette e-Cigarette/Vaping Use: Never Used Second Hand Smoke Exposure: No Substance Use Type: Marijuana Advance Directives Date on File: 06/07/20 service: No Current occupational status: disabled Sexual orientation: Straight/Heterosexual Gender identity: Female Cognitive needs: No Hearing needs: No Vision needs: Yes (reading glasses) Female Reproductive History Menstrual Age of Menarche: 15 Questionnaire PHQ-9 Over the last 2 weeks, how often have you been bothered by any of the following problems? 1. Little interest or pleasure in doing things: not at all 2. Feeling down, depressed, or hopeless: not at all 3. Trouble falling or staying asleep, or sleeping too much: not at all 4. Feeling tired or having little energy: not at all 5. Poor appetite or overeating: not at all 6. Feeling bad about yourself - or that you are a failure or have let yourself or your family down: not at all 7. Trouble concentrating on things, such as reading the newspaper or watching television: not at all 8. Moving or speaking so slowly that other people could have noticed. Or the opposite - being so fidgety or restless that you have been moving around a lot more than usual: not at all 9. Thoughts that you would be better off or of hurting yourself in some way: not at all Total score: 0 Depression Screening Interpretation: Negative Depression Screening Done: Yes 44054 - PHQ-9 Billing: Yes Source: Developed by Drs. Matty Hartman, Gia Limon, Perfecto Santamaria and colleagues, with an educational walter from [employer]. Thrive Questionnaire Date Thrive assessed: 01/13/23 I am a: Patient What is your living situation today?: I have a steady place to live Within the past 12 months, did the food you bought not last and you didn't have the money to get more?: Never true Within the past 12 months, did you worry whether your food would run out before you got money to buy more?: Never true Do you have trouble paying for medicines?: No Do you have trouble getting transportation to medical appointments?: No Do you have trouble paying your heating and electricity bill?: No Do you have trouble taking care of your child, family member or friend?: No Do you have trouble with day-to-day activities such as bathing, preparing meals, shopping, managing finances, etc.?: No Are you currently unemployed and looking for a job?: No Are you interested in more education?: No Currently or been in a relationship where the following occur: no concerns reported AUDIT C Alcohol Use Questionnaire (AUDIT-C) 1. How often do you have a drink containing alcohol?: Monthly or less 2. How many drinks containing alcohol do you have on a typical day when you are drinking?: 1 or 2 Total Score: 1 Score Reviewed/Action Taken: No ELIAZAR-7 AMB Questionnaire ELIAZAR-7 Date ELIAZAR - 7 assessed: 01/13/23 Feeling nervous, anxious, or on edge: 1 = Several days Not being able to stop or control worryin = Several days Worrying too much about different things: 1 = Several days Trouble relaxin = Several days Being so restless that it is hard to sit still: 0 = Not at all Becoming easily annoyed or irritable: 0 = Not at all Feeling afraid as if something awful might happen: 1 = Several days Total ELIAZAR-7 score (0-4 normal; 5-9 mild; 10-14 moderate; 15-21 severe): 5 Source: Developed by Drs. Matty Hartman, Gia Limon, Perfecto Santamaria and colleagues, with an educational walter from [employer]. ELIAZAR-7 Assessment Billing ELIAZAR-7 Assessment Tool: ELIAZAR-7 Assessment 66147 Review of Systems Const Reports no additional complaints Eyes Reports no additional complaints ENT Reports no additional complaints Card Reports no additional complaints Resp Reports no additional complaints GI Reports no additional complaints Reports as per HPI Skin/Breast Reports as per HPI Physical exam (Primary Care) Vital Signs: Last Vital Signs Pulse 88 01/13/23 15:42 BP 120/72 01/13/23 15:42 Pulse Ox 94 01/13/23 15:55 Oxygen Delivery Method Room Air 01/13/23 15:55 BMI result Body Mass Index 36.7 Tobacco/Smoking Status: Tobacco use Status Tobacco use date assessed 01/13/23 01/13/23 15:51 Patient Tobacco Use Status Former Tobacco user 01/13/23 15:51 Tobacco use type Cigarette 01/13/23 15:51 e-Cigarette/Vaping Use Never Used 01/13/23 15:51 PHQ-9: PHQ-9 Score PHQ-9: Total score 0 01/13/23 15:57 Depression Screening Interpretation: Negative Thrive Assessment: Date of Thrive Assessment Date Thrive assessed 01/13/23 01/13/23 15:51 Currently or been in a relationship where the following occur: no concerns reported Const General: cooperative and no acute distress Orientation/consciousness: patient oriented x3 HENMT Head: Yes normocephalic and Yes atraumatic Throat: Yes posterior oropharynx normal Eyes General: appearance normal, both eyes and all related structures Neck Neck: Yes normal visual inspection, Yes full ROM and Yes no lymphadenopathy Resp Effort & Inspection: normal respiratory effort and able to speak in complete sentences Auscultation: clear to auscultation bilaterally, no crackles, no rales, no rhonchi and no wheezes Cardio Rate: regular rate Rhythm: regular rhythm Heart sounds: S1 normal heart sound present and S2 normal heart sound present GI Auscultation: normal bowel sounds General: No CVA tenderness Back/Spine/Pelvis Back: No CVA tenderness Skin Full body images: 2 1. right scalp about 2cm raised sensitive area, skin is intact. Neuro General: patient oriented x3 Gait exam (Neuro): Normal gait present Extrem General: Yes full ROM Assessment and Plan Assessment & Plan (1) Bilateral flank pain: Code(s): R10.9 - Unspecified abdominal pain Plan: Physical exam normal in the office today Patient denies any flank pain today Will obtain urinalysis, blood work, KUB - to assess for any kidney stones Will notify of the results Signs and symptoms reviewed when to notify provider or go to the emergency department Patient agreed with the plan (2) Lump of skin: Code(s): R22.9 - Localized swelling, mass and lump, unspecified Plan: right scalp about 2cm raised sensitive area, skin is intact. Will obtain ultrasound Will notify of the results Orders: Orders 2 US soft tiss head and/or neck Today R22.9 - Localized swelling, mass and lump, unspecified XR KUB Today R10.9 - Unspecified abdominal pain UA CC w/rflx Micro + Cult Today R10.9 - Unspecified abdominal pain Comprehensive Met. Panel Today R10.9 - Unspecified abdominal pain Complete Blood Count Auto Diff Today R10.9 - Unspecified abdominal pain Coding Level of Care Code Est Pt Level 4 (30149) Diagnoses Bilateral flank pain R10.9 Lump of skin R22.9 Additional Codes ELAIZAR-7 Assessment Billing - ELIAZAR-7 Assessment Tool: ELIAZAR-7 Assessment 04059 ([id number])
[2023-01-13 15:42] VITALS: BP 120/72; PULSE 88; O2SAT 88; BMI 36.7
[2023-01-13 15:55] VITALS: O2SAT 94
== END 2023-01-13 16:11 | disposition home or self-care (01) ==
PROVIDERS: PCP Internal Medicine; Visit Provider Nurse Practitioner Family
DX: R10.9 Unspecified abdominal pain (principal); R22.9 Localized swelling, mass and lump, unspecified
CPT/HCPCS: 99214

== ENCOUNTER 2023-01-19 10:49 | Outpatient (REF) | payer MEDICARE, MEDICAID, SELFPAY ==
--- NOTE | ~2023-01-19 | XR_ITS ---
EXAMINATION: XR ABDOMEN KUB CLINICAL INDICATION: Abdominal pain. COMPARISON: CT abdomen dated 06/23/2007. TECHNIQUE: AP view of the abdomen. FINDINGS: The bowel gas pattern is normal with no evidence of ileus or obstruction. The stool burden is mild. No free intraperitoneal air is seen. No unusual soft tissue calcifications are noted. There is no acute osseous abnormality. There are degenerative changes of the thoracolumbar spine. XR/XR KUB IMPRESSION: Unremarkable examination.
[2023-01-19 11:13] LABS: MANUAL DIFF FLAG NO
[2023-01-19 11:38] LABS: Basophils Percent Auto 0.5 % (0-2); Eosinophils Absolute Auto 0.2 X10*3/uL (0.0-0.4); Eosinophils Percent Auto 3.1 % (0-4); Hematocrit 43.4 % (37.0-47.0); Hemoglobin 13.8 g/dl (12.0-16.0); Imm Gran Abs Auto 0.03 X10*3/uL (0.00-0.03); Imm Gran Pct Auto 0.4 % (0.0-0.4); Lymphocytes Absolute Auto 1.7 X10*3/uL (1.2-4.9); Lymphocytes Percent Auto 21.3 % (20-40); Mean Corpuscular HGB Conc 31.8 g/dl (31.0-35.0); Mean Corpuscular Hemoglobin 28.9 pg (27.0-33.0); Mean Platelet Volume 8.9 fL (9.4-12.3); Monocytes Absolute Auto 0.8 X10*3/uL (0.1-1.2); Monocytes Percent Auto 10.5 % (2-11); Neutrophils Percent Auto 64.2 % (45-73); Platelet Count 247 X10*3/uL (160-400); Red Blood Count 4.77 X10*6/uL (4.20-5.50); Red Cell Distribution Width 13.4 % (11.0-16.0); White Blood Count 7.8 X10*3/uL (4.8-10.8)
[2023-01-19 12:02] LABS: Alanine Aminotransferase 15 U/L (0-31); Albumin Level 4.2 g/dL (3.5-5.0); Alkaline Phosphatase 73 U/L (39-117); Anion Gap 13 (12-20); Aspartate Amino Transferase 15 U/L (5-31); Bilirubin Total 0.4 mg/dL (0.0-1.0); Blood Urea Nitrogen 14 mg/dL (9-16); Calcium 9.2 mg/dL (8.4-10.2); Carbon Dioxide 32 mmol/L (22-29); Chloride 101 mmol/L (96-108); Estimated Glomerular Filt Rate > 60; Glucose Random 94 mg/dL (60-115); Potassium 4.2 mmol/L (3.3-5.1); Sodium 142 mmol/L (135-145); Total Protein 7.4 g/dL (6.5-8.0)
[2023-01-19 12:07] LABS: Appearance Urine Clear; Color Urine Yellow; Glucose Urine UA Negative (Negative); Leukocyte Esterase Urine Small (1+) (Negative); Nitrite Urine Negative (Negative); PH 5.5 (5.0-9.0); UMIC TRIGGER UACC YES; Urine Blood Trace (Negative); Urine Ketones Negative (Negative); Urine Protein Negative (Neg-Trace)
[2023-01-19 12:10] LABS: Bacteria Urine 1+ (None Seen); Hyaline Casts Urine 0-2 /LPF (0-2); RBC Urine 0-2 /HPF (0-2); UACC Culture Trigger YES
== END 2023-01-19 10:50 | disposition home or self-care (01) ==
LOC: HO.LAB 10:49
PROVIDERS: PCP Internal Medicine; Visit Provider Nurse Practitioner Family
DX: R10.9 Unspecified abdominal pain (principal)
CPT/HCPCS: 36415; 74018; 80053; 81001; 81003; 85025; 87086

== ENCOUNTER 2023-02-19 12:52 | Outpatient (REF) | payer MEDICARE, MEDICAID, SELFPAY ==
--- NOTE | ~2023-02-19 | US_ITS ---
EXAMINATION: US SOFT TISSUE HEAD/NECK CLINICAL INFORMATION: Localized swelling, mass and lump, unspecified. Right scalp about 2 cm raised sensitive area, skin is intact. COMPARISON: None available. TECHNIQUE: Linear transducer fish-scale and color Doppler examination of the right anterior/frontal head just behind hairline. FINDINGS: No abnormality is seen in the area of clinical concern. US/US soft tiss head and/or neck IMPRESSION: No abnormality is detected.
== END 2023-02-19 12:53 | disposition home or self-care (01) ==
LOC: HO.US 12:52
PROVIDERS: Visit Provider Nurse Practitioner Family
DX: R22.9 Localized swelling, mass and lump, unspecified (principal)
CPT/HCPCS: 76536

== ENCOUNTER 2023-04-20 10:30 | Outpatient (AMB) | payer MEDICARE, MEDICAID, SELFPAY ==
[2023-04-20 10:32] VITALS: BP 130/80; BMI 39.0
--- NOTE | 2023-04-20 10:32 | A.OFFPC_ITS ---
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 Required: No Accompanied by: Self / Same As Patient Allergies No Known Allergies Allergy (Verified 04/20/23 10:51) Medication List - Last Reconciled 04/20/23 by Cira Corral MD ascorbate calcium (vitamin C) 500 mg PO DAILY calcium carbonate (Tums) 300 mg PO BID [cbd oil buccal] cholecalciferol (vitamin D3) 50 mcg PO DAILY methadone 110 mg PO DAILY multivitamin 1 tab PO DAILY ondansetron 8 mg PO Q12H PRN 7 days [thc gummies buccal] zinc acetate (Galzin) 50 mg PO DAILY Tobacco use date assessed: 04/20/23 Dental Screening Dental Screen Date: 04/20/23 Did you have a dental visit in the last 12 months?: No Did you have a dental problem in the last 6 months where you did not have access to dental care?: No Was dental information given to patient?: Patient has dentist HPI HPI Comments History of Present Illness Details This is a 52-year-old female that comes today complaining of right sciatica, hand paresthesias and myalgias more prominent in bilateral upper limbs that has been worsening for the past few weeks. No rash or fever. Will order labs, nerve conduction study and x-rays. She is on methadone for a long time and has been well control with maintenance therapy. PFSH Medical History ELIAZAR (generalized anxiety disorder) Polyarthralgia Screening for diabetes mellitus Anxiety and depression Nausea & vomiting Obesity (BMI 30-39.9) Cigarette smoker motivated to quit Surgical History Hx of colonoscopy H/O hernia repair H/O lumpectomy H/O foot surgery Family History Sister Ovarian cancer Colon cancer Paternal Grandmother History of breast cancer Father Diabetes Family/Other Substance use disorder Mental health disorder Social History Household Members: Children Household Members Other:: Housing: Apartment Alcohol intake: current Alcohol intake frequency: holidays/special occasions only Alcohol type: wine Patient Tobacco Use Status: Former Tobacco user Quit Date: one month Tobacco use type: Cigarette e-Cigarette/Vaping Use: Never Used Second Hand Smoke Exposure: No Substance Use Type: Marijuana Advance Directives Date on File: 06/07/20 service: No Current occupational status: disabled Sexual orientation: Straight/Heterosexual Gender identity: Female Cognitive needs: No Hearing needs: No Vision needs: Yes (reading glasses) Female Reproductive History Menstrual Age of Menarche: 15 Questionnaire PHQ-9 Over the last 2 weeks, how often have you been bothered by any of the following problems? 1. Little interest or pleasure in doing things: not at all 2. Feeling down, depressed, or hopeless: not at all 3. Trouble falling or staying asleep, or sleeping too much: not at all 4. Feeling tired or having little energy: not at all 5. Poor appetite or overeating: not at all 6. Feeling bad about yourself - or that you are a failure or have let yourself or your family down: not at all 7. Trouble concentrating on things, such as reading the newspaper or watching television: not at all 8. Moving or speaking so slowly that other people could have noticed. Or the opposite - being so fidgety or restless that you have been moving around a lot more than usual: not at all 9. Thoughts that you would be better off or of hurting yourself in some way: not at all Total score: 0 Depression Screening Interpretation: Negative Depression Screening Done: Yes 17259 - PHQ-9 Billing: Yes Source: Developed by Drs. Matty Hartman, Gia Limon, Perfecto Santamaria and colleagues, with an educational walter from [employer]. Thrive Questionnaire Date Thrive assessed: 04/20/23 I am a: Patient What is your living situation today?: I have a steady place to live Within the past 12 months, did the food you bought not last and you didn't have the money to get more?: Never true Within the past 12 months, did you worry whether your food would run out before you got money to buy more?: Never true Do you have trouble paying for medicines?: No Do you have trouble getting transportation to medical appointments?: No Do you have trouble paying your heating and electricity bill?: No Do you have trouble taking care of your child, family member or friend?: No Do you have trouble with day-to-day activities such as bathing, preparing meals, shopping, managing finances, etc.?: No Are you currently unemployed and looking for a job?: No Are you interested in more education?: No Please select the resources that you would like help with: None Currently or been in a relationship where the following occur: no concerns reported THRIVE Score: 0 AUDIT C Alcohol Use Questionnaire (AUDIT-C) 1. How often do you have a drink containing alcohol?: Monthly or less 2. How many drinks containing alcohol do you have on a typical day when you are drinking?: 1 or 2 3. How often do you have six or more drinks on one occasion?: Never Total Score: 1 Score Reviewed/Action Taken: No ELIAZAR-7 AMB Questionnaire ELIAZAR-7 Date ELIAZAR - 7 assessed: 04/20/23 Feeling nervous, anxious, or on edge: 1 = Several days Not being able to stop or control worryin = Not at all Worrying too much about different things: 1 = Several days Trouble relaxin = Not at all Being so restless that it is hard to sit still: 0 = Not at all Becoming easily annoyed or irritable: 1 = Several days Feeling afraid as if something awful might happen: 1 = Several days Total ELIAZAR-7 score (0-4 normal; 5-9 mild; 10-14 moderate; 15-21 severe): 4 Source: Developed by Drs. Matty Hartman, Gia Limon, Perfecto Santamaria and colleagues, with an educational walter from [employer]. ELIAZAR-7 Assessment Billing ELIAZAR-7 Assessment Tool: ELIAZAR-7 Assessment 88530 Review of Systems Const All systems reviewed & are unremarkable except as noted in HPI and below Eyes Reports no additional complaints, Denies change in vision and Denies other visual disturbances Card Denies chest pain at rest, Denies chest pain with activity, Denies edema, Denies irregular heart rhythm, Denies claudication, Denies dyspnea, Denies dyspnea on exertion, Denies orthopnea, Denies paroxysmal nocturnal dyspnea and Denies slow heart rate Resp Denies cough, Denies dyspnea and Denies dyspnea on exertion GI Denies abdominal pain, Denies change in bowel habits, Denies excessive flatus, Denies nausea and Denies vomiting Denies urinary incontinence, Denies urinary hesitancy and Denies urinary urgency Musc Denies atrophy, Denies deformity and Denies limited range of motion Physical exam (Primary Care) Vital Signs: Last Vital Signs BP 130/80 04/20/23 10:32 BMI result Body Mass Index 39.0 Tobacco/Smoking Status: Tobacco use Status Tobacco use date assessed 04/20/23 04/20/23 10:43 Patient Tobacco Use Status Former Tobacco user 04/20/23 10:43 Tobacco use type Cigarette 04/20/23 10:43 e-Cigarette/Vaping Use Never Used 04/20/23 10:43 PHQ-9: PHQ-9 Score PHQ-9: Total score 0 04/20/23 11:07 Depression Screening Interpretation: Negative Thrive Assessment: Date of Thrive Assessment Date Thrive assessed 04/20/23 04/20/23 10:43 Currently or been in a relationship where the following occur: no concerns reported Eyes General: appearance normal, both eyes and all related structures Eyelids: Yes eyelids normal Conjunctivae: conjunctivae normal Neck Neck: Yes normal visual inspection and Yes supple Resp Effort & Inspection: normal respiratory effort Auscultation: clear to auscultation bilaterally Cardio Jugular venous distension: no JVD Rate: regular rate Rhythm: regular rhythm Heart sounds: S1 normal heart sound present and S2 normal heart sound present Extrem General: Yes full ROM Office Procedures Flu Questionnaire Does the patient have a severe egg allergy?: No Does the patient have severe life threatening allergies?: No Does the patient have a fever or illness today?: No Has the patient ever had Guillain-Genesee Syndrome?: No Has the patient ever had any past reaction to a flu shot?: No Immunizations flu vacc [id number] 6mos up(PF) 60 mcg(15 mcgx4)/0.5 mL IM syringe Performing Provider: Cira Corral MD [place] [facility] [place] [facility] [place] [facility] Administered by: ANA Rain on 04/20/23 11:08 Dose Route Admin Location Dispensed Lot Number Expiration Date NDC Care Technician 0.5 mL IM Left Deltoid 0.5 mL [id number] 09/06/23 15516-074-08 L8 SmartLight VIS Given Date VIS Provided VIS Publication Date 04/20/23 Single Vaccine 20 Eligibility Eligibility Date Funding Source Not [facility] Eligible 04/20/23 Private Assessment and Plan Assessment & Plan (1) Hand paresthesia: Code(s): R20.2 - Paresthesia of skin Plan: Nerve conduction study order. (2) Right sided sciatica: Code(s): M54.31 - Sciatica, right side Plan: X-ray ordered. (3) Methadone maintenance therapy patient: Code(s): F11.20 - Opioid dependence, uncomplicated Plan: Follow-up with methadone clinic. (4) Myalgia: Code(s): M79.10 - Myalgia, unspecified site Plan: Cyclobenzaprine seem to be use as needed for bedtime. Orders: Orders NE nerve conduction velocity Today R20.2 - Paresthesia of skin Influenza [id number] Immunization Today Z23 - Encounter for immunization Vitamin D 25-OH Total Today E55.9 - Vitamin D deficiency, unspecified Comprehensive [place]. Panel Fast Today M25.50 - Pain in unspecified joint Complete Blood Count Auto Diff Today M25.50 - Pain in unspecified joint CIRA Reflex Titer and Pattern Today M25.50 - Pain in unspecified joint Cyclic Citrullinated Peptide Today M25.50 - Pain in unspecified joint Rheumatoid Factor Today M25.50 - Pain in unspecified joint Erythrocyte Sedimentation Rate Today M25.50 - Pain in unspecified joint CRP High Sensitivity Today M25.50 - Pain in unspecified joint Lipid Panel Today E66.9 - Obesity, unspecified XR lumbar spine 2-3V Today M54.31 - Sciatica, right side XR shoulder LT min 2V Today M25.512 - Pain in left shoulder XR shoulder RT min 2V Today M25.511 - Pain in right shoulder Magnesium Today M25.50 - Pain in unspecified joint Anti DNA DS Antibody Today M25.50 - Pain in unspecified joint Thyroid Stimulating Hormone Today E66.9 - Obesity, unspecified UA CC w/rflx Micro + Cult Today R30.0 - Dysuria Referrals Dermatology Referral L98.9 - Disorder of the skin and subcutaneous tissue, unspecified Medications: New cyclobenzaprine 10 mg PO BEDTIME 7 days PRN 7 tabs 0RF muscle spasm diclofenac sodium 1% (Arthritis Pain (diclofenac)) apply to single elbow, wrist or hand; for hand includes palm/fingers/back of hand 2 grams topical QID 30 days 100 grams 1RF Coding Level of Care Code Est Pt Level 4 (35189) Diagnoses Hand paresthesia R20.2 Right sided sciatica M54.31 Methadone maintenance therapy patient F11.20 Myalgia M79.10 Additional Codes ELIAZAR-7 Assessment Billing - ELIAZAR-7 Assessment Tool: ELIAZAR-7 Assessment 21738 ([id number]) Time Spent (min) 24
== END 2023-04-20 11:13 | disposition home or self-care (01) ==
PROVIDERS: PCP Internal Medicine; Visit Provider Internal Medicine
DX: R20.2 Paresthesia of skin (principal); F11.20 Opioid dependence, uncomplicated; M54.31 Sciatica, right side; Z23 Encounter for immunization; M79.10 Myalgia, unspecified site
CPT/HCPCS: 90471; 90686; 99214

== ENCOUNTER 2023-06-23 09:59 | Outpatient (REF) | payer MEDICARE, SELFPAY ==
--- NOTE | 2023-06-23 10:05 | EMG_ITS ---
Bilateral median and ulnar motor and sensory studies were performed. Bilateral superficial radial and median and lateral antecubital brachial sensory studies were performed and paraspinal muscles were tested with a needle. IMPRESSION: Moderate right and mild left median neuropathy across carpal tunnel. MD CLOVER Hull/MARGUERITE / [id number]
[2023-06-23 10:33] LABS: MANUAL DIFF FLAG NO
[2023-06-23 10:53] LABS: Appearance Urine Clear; Color Urine Yellow; Glucose Urine UA Negative (Negative); Leukocyte Esterase Urine Trace (Negative); Nitrite Urine Negative (Negative); PH 6.5 (5.0-9.0); UMIC TRIGGER UACC YES; Urine Blood Negative (Negative); Urine Ketones Negative (Negative); Urine Protein Negative (Neg-Trace)
[2023-06-23 10:57] LABS: Bacteria Urine Trace (None Seen); Hyaline Casts Urine 0-2 /LPF (0-2); RBC Urine 0-2 /HPF (0-2); Squamous Epithelial Cell Urine 0-2 /HPF (0-2); WBC Urine 0-5 /HPF (0-5)
[2023-06-23 11:08] LABS: Basophils Percent Auto 0.3 % (0-2); Eosinophils Absolute Auto 0.2 X10*3/uL (0.0-0.4); Eosinophils Percent Auto 2.2 % (0-4); Hematocrit 42.9 % (37.0-47.0); Hemoglobin 13.7 g/dl (12.0-16.0); Imm Gran Abs Auto 0.02 X10*3/uL (0.00-0.03); Imm Gran Pct Auto 0.3 % (0.0-0.4); Lymphocytes Absolute Auto 1.2 X10*3/uL (1.2-4.9); Mean Corpuscular HGB Conc 31.9 g/dl (31.0-35.0); Mean Corpuscular Hemoglobin 28.2 pg (27.0-33.0); Mean Corpuscular Volume 88.5 fL (80.0-98.0); Mean Platelet Volume 8.8 fL (9.4-12.3); Monocytes Absolute Auto 0.6 X10*3/uL (0.1-1.2); Monocytes Percent Auto 8.5 % (2-11); Neutrophils Percent Auto 71.7 % (45-73); Platelet Count 246 X10*3/uL (160-400); Red Blood Count 4.85 X10*6/uL (4.20-5.50); Red Cell Distribution Width 13.4 % (11.0-16.0)
[2023-06-23 11:44] LABS: Alanine Aminotransferase 23 U/L (0-31); Alkaline Phosphatase 74 U/L (39-117); Anion Gap 11 (12-20); Aspartate Amino Transferase 18 U/L (5-31); Bilirubin Total 0.3 mg/dL (0.0-1.0); Blood Urea Nitrogen 11 mg/dL (9-16); Calcium 8.8 mg/dL (8.4-10.2); Carbon Dioxide 29 mmol/L (22-29); Chloride 102 mmol/L (96-108); Cholesterol 206 mg/dL (<200); Estimated Glomerular Filt Rate > 60; Glucose Fasting 128 mg/dL (60-99); HDL Cholesterol 54 mg/dL (>40); LDL Cholesterol Calculated 127 mg/dL (<100); Magnesium 1.8 mg/dL (1.6-2.6); Sodium 138 mmol/L (135-145); Total Protein 7.2 g/dL (6.5-8.0); Triglycerides 129 mg/dL (<150)
[2023-06-23 11:51] LABS: Thyroid Stimulating Hormone 2.05 uIU/mL (0.32-4.0); Vitamin D 25-OH Total 16.2 ng/mL (>30)
[2023-06-23 11:59] LABS: Erythrocyte Sedimentation Rate 11 MM/HR (0-20)
[2023-06-23 12:02] LABS: Rheumatoid Factor < 13.0 IU/mL (<15.0)
[2023-06-24 17:13] LABS: Cyclic Citrullinated Peptide <16 UNITS
[2023-06-24 17:54] LABS: CRP High Sensitivity 6.6 mg/L
[2023-06-24 19:38] LABS: Anti DNA DS Antibody <1 IU/mL
[2023-06-25 14:53] LABS: Anti Nuclear Antibody Screen POSITIVE (NEGATIVE); Anti Nuclear Antibody Titer 1:40 titer
== END 2023-06-23 10:00 | disposition home or self-care (01) ==
LOC: HO.NEURO 09:59
PROVIDERS: PCP Internal Medicine; Visit Provider Internal Medicine
DX: R20.2 Paresthesia of skin (principal); M25.50 Pain in unspecified joint; E66.9 Obesity, unspecified; E55.9 Vitamin D deficiency, unspecified
CPT/HCPCS: 36415; 80053; 80061; 81001; 82306; 83735; 84443; 85025; 85652; 86038; 86039; 86141; 86200; 86225; 86431; 95885; 95913

== ENCOUNTER 2023-07-30 11:05 | Outpatient (REF) | payer MEDICARE, SELFPAY | END 2023-07-30 11:06 | disposition home or self-care (01) | LOC: HO.MAMMO 11:05 | PROVIDERS: PCP Internal Medicine; Visit Provider Internal Medicine | DX: Z12.31 Encounter for screening mammogram for malignant neoplasm of breast (principal) | CPT/HCPCS: 77063; 77067 ==

== ENCOUNTER → 2023-07-30 11:15 | Outpatient (BNV) | payer MEDICARE, SELFPAY | PROVIDERS: PCP Internal Medicine; Visit Provider Radiology Diagnostic Radiology | DX: Z12.31 Encounter for screening mammogram for malignant neoplasm of breast (principal) | CPT/HCPCS: 77063; 77067 ==

== ENCOUNTER 2023-08-31 10:46 | Outpatient (AMB) | payer MEDICARE, SELFPAY ==
--- NOTE | 2023-08-31 10:56 | MHC.OFFVIS ---
Vital Signs 08/31/23 10:59 Height 5 ft 7 in Weight 240 lb BMI 37.6 Handedness Right Intake Visit Reasons: N/P B/L hand CTS EMG done Intake Note: Carlene is a 52 year old right hand dominant female who presents today as a new patient for bilateral Carpal Tunnel Syndrome. EMG done on 06/23/23. Patient reports she has been having numbness and tingling for the past 10 years that is in her hands and radiates up her arms, in the past 2 years it has worsened. Left is worse than right. She expresses she would only have discomfort when she used her hands but now she she is having pain, numbness and tingling even when she is not using her hands. Some days she says she is woken up at night for the pain. She has tried topical ointment and CBD topical lotion for inflammation but only briefly. She states her hands feel so she has to shake her hands or squeeze them for mild relief . She would like to discuss surgery if necessary. If she needs to have CTR done she would like to do the left hand first. Allergies No Known Allergies Allergy (Verified 08/31/23 11:00) HPI HPI N/P B/L hand CTS EMG done : Details: Patient is a 52-year-old right-hand dominant female who presents for evaluation of bilateral carpal tunnel syndrome. Patient reports that symptoms have been going on for approximately 10 years, but worsened over the last 2-3 years. Patient reports that she has intermittent numbness every day, as well as pain shooting throughout the median nerve distribution of her bilateral hands, right slightly worse than left. Patient reports that this numbness and pain occurs whenever she uses her hands for more than approximately 1-2 minutes, and she feels as if her hand is ??. The patient also reports that this pain occasionally radiates up the forearm and into the shoulder. Patient reports that this pain will wake her from sleep on a regular basis. Patient reports that the thumb, index finger, and middle finger get numb when she experiences symptoms, but is unsure if the small finger is affected. She reports that her Primary Care Provider sent her for an EMG and nerve conduction study. Patient would like to explore any potential treatment options available. Patient is currently unemployed. [facility] Medical History ELIAZAR (generalized anxiety disorder) Polyarthralgia Screening for diabetes mellitus Anxiety and depression Nausea & vomiting Obesity (BMI 30-39.9) Cigarette smoker motivated to quit Surgical History Hx of colonoscopy H/O hernia repair H/O lumpectomy H/O foot surgery Family History Sister Ovarian cancer Colon cancer Paternal Grandmother History of breast cancer Father Diabetes Family/Other Substance use disorder Mental health disorder Social History Household Members: Children Household Members Other:: Housing: Apartment Alcohol intake: current Alcohol intake frequency: holidays/special occasions only Alcohol type: wine Patient Tobacco Use Status: Former Tobacco user Tobacco use type: Cigarette e-Cigarette/Vaping Use: Never Used Second Hand Smoke Exposure: No Substance Use Type: Marijuana Advance Directives Date on File: 06/07/20 service: No Current occupational status: disabled Current occupation: right hand dominant Sexual orientation: Straight/Heterosexual Gender identity: Female Cognitive needs: No Hearing needs: No Vision needs: Yes (reading glasses) Female Reproductive History Menstrual Age of Menarche: 15 Review of Systems Const All systems reviewed & are unremarkable except as noted in HPI and below Physical Exam Vital Signs: BMI result Body Mass Index 37.6 Const Other: Patient is alert, oriented, cooperative, and in no acute distress HEENT Head: Yes normocephalic and Yes atraumatic Resp Effort & Inspection: normal respiratory effort and able to speak in complete sentences Cardio Jugular venous distension: no JVD Neuro General: gait normal Cognition (Neuro): normal cognition Extrem Other: Neuro: Normal sensation to all other digits in bilateral hands at this time, but reports that her left hand began to go numb during interview. No thenar or intrinsic wasting. Good APB muscle firing and good finger cross. Vascular: Capillary refill brisk. ROM: Patient can make a fist and extend all their digits. No locking or catching noted. Skin: No lacerations or abrasions noted. General: No ecchymosis. No erythema or evidence of infection. Psych Appearance: grossly normal Mental Status: mental status grossly normal Results Reviewed Results Reviewed: Nerve Conduction Study IMPRESSION: Moderate right and mild left median neuropathy across carpal tunnel. Assessment & Plan Assessment & Plan (1) Carpal tunnel syndrome: Code(s): G56.00 - Carpal tunnel syndrome, unspecified upper limb Category: Medical Qualifiers: Laterality: bilateral Qualified Code(s): G56.03 - Carpal tunnel syndrome, bilateral upper limbs Plan 1. Carpal tunnel syndrome, left Symptoms intermittent, but daily. Patient also reports pain that is intermittent, but daily Patient regularly awoken from sleep. Although patient reports symptoms on the right are slightly worse, she would like to have a ?trial run? to see how her recovery is before she has surgery performed on her dominant hand. I educated the patient about the condition. I discussed both operative and nonoperative treatment options. The patient would like to proceed with surgery. The risks and benefits of operative treatment were discussed with the patient and the patient wishes to proceed with surgery. These risks include, but are not limited to, risk of damage to blood vessels, nerves, tendons, infection, recurrence, incomplete relief of preoperative symptoms, persistent pain, possible need for further surgery, and the risks associated with regional blocks and/or anesthesia. Plan is to take the patient to the operating room at some point in the next few weeks for the following procedures: 1. Left carpal tunnel release under local anesthesia All of the preoperative paperwork including the consent was discussed today. All of the patient's questions were answered in the clinic today. The patient understands that they will be in contact with our medical or surgical instrument maker to discuss scheduling their procedure. Patient expresses concerns about procedure and recovery time, but is much more comfortable after discussion. Patient denies diabetes, blood thinners, asthma, heart issues, lung issues, kidney issues, or current smoking. 2. Carpal tunnel syndrome, right Symptoms intermittent, but daily Patient also reports pain, intermittent but daily Patient regularly awoken from sleep Patient reports that symptoms are slightly worse in the right hand, but she wants to proceed with surgery on the left 1st, as her right hand is her dominant hand. Patient is open to surgical treatment of her right carpal tunnel syndrome after she has started recovering from surgery on the left side. Coding Level of Care Code New Pt Level 4 (74284) Diagnoses Bilateral carpal tunnel syndrome G56.03 Laterality: bilateral
[2023-08-31 10:59] VITALS: BMI 37.6
== END 2023-08-31 11:31 | disposition home or self-care (01) ==
PROVIDERS: PCP Internal Medicine
DX: G56.03 Carpal tunnel syndrome, bilateral upper limbs (principal)
CPT/HCPCS: 99204

== ENCOUNTER → 2023-08-31 10:46 | Outpatient (BNVA) | payer MEDICARE, SELFPAY | PROVIDERS: PCP Internal Medicine | DX: G56.03 Carpal tunnel syndrome, bilateral upper limbs (principal) | CPT/HCPCS: 99202 ==

== ENCOUNTER 2023-09-09 12:49 | Outpatient (AMB) | payer MEDICARE, SELFPAY ==
[2023-09-09 12:53] VITALS: BP 128/82; PULSE 95; BMI 39.1
--- NOTE | 2023-09-09 12:53 | MHC.OFFVIS ---
Vital Signs 09/09/23 12:53 Height 5 ft 7 in Weight 249 lb 12.54 oz BMI 39.1 BP 128/82 Blood Pressure Location Rt brachial Position Sitting Pulse 95 Pulse Source Pulse Oximeter Intake Visit Reasons: Abnormal Lab/CONFIRMED Intake Note: Patient last seen 09/03/[address] Heredia presents today for follow up. Hand Mexican Food Maker Required: No Accompanied by: Self / Same As Patient Allergies No Known Allergies Allergy (Verified 09/09/23 12:55) Medication List - Last Reconciled 09/09/23 by Jose M Rothman MD ascorbate calcium (vitamin C) 500 mg PO DAILY calcium carbonate (Tums) 300 mg PO BID [cbd oil buccal] chlorhexidine gluconate 0.12% PO cholecalciferol (vitamin D3) 50 mcg PO DAILY 90 days cyclobenzaprine 10 mg PO BEDTIME PRN 7 days diclofenac sodium 1% (Arthritis Pain (diclofenac)) 2 grams topical QID 30 days methadone 110 mg PO DAILY multivitamin 1 tab PO DAILY ondansetron 8 mg PO Q12H PRN 7 days [thc gummies buccal] zinc acetate (Galzin) 50 mg PO DAILY HPI Comments Details: This is a 52-year-old female presents for evaluation of a positive CONSUELO. She was evaluated by Dr. Heredia about 2 years ago and was deemed to have carpal tunnel syndrome. Recently she had an EMG which showed carpal tunnel syndrome and she is now evaluated for surgery for right hand carpal tunnel release. She states that her mother was recently diagnosed with antiphospholipid antibody syndrome and is taking Coumadin regularly. She had developed a blood clot. Patient had 2 pregnancies in total, 1 child and 1 . She denies any history of DVT/PE. [facility] Medical History ELIAZAR (generalized anxiety disorder) Polyarthralgia Screening for diabetes mellitus Anxiety and depression Nausea & vomiting Obesity (BMI 30-39.9) Cigarette smoker motivated to quit Surgical History Hx of colonoscopy H/O hernia repair H/O lumpectomy H/O foot surgery Family History Sister Ovarian cancer Colon cancer Paternal Grandmother History of breast cancer Father Diabetes Family/Other Substance use disorder Mental health disorder Mother Antiphospholipid antibody syndrome Thyroid condition Social History Household Members: Children Household Members Other:: Housing: Apartment Alcohol intake: current Alcohol intake frequency: holidays/special occasions only Alcohol type: wine Patient Tobacco Use Status: Former Tobacco user Tobacco use type: Cigarette e-Cigarette/Vaping Use: Never Used Second Hand Smoke Exposure: No Substance Use Type: Marijuana Advance Directives Date on File: 06/07/20 service: No Current occupational status: disabled Current occupation: right hand dominant Sexual orientation: Straight/Heterosexual Gender identity: Female Cognitive needs: No Hearing needs: No Vision needs: Yes (reading glasses) Female Reproductive History Menstrual Age of Menarche: 15 Total pregnancies: 2 Full term: 1 Ab induced: 1 Review of Systems Musc Reports numbness Neuro Reports numbness Physical Exam Vital Signs: Last Vital Signs Pulse 95 09/09/23 12:53 BP 128/82 09/09/23 12:53 BMI result Body Mass Index 39.1 Const General: cooperative, healthy appearing and comfortable Nutritional Appearance: obese morbidly obese Orientation/consciousness: patient oriented x3 Limitations: no limitations HEENT Other: Mildly reduced mouth opening Head: Yes normocephalic and Yes atraumatic Mouth: moist mucous membranes Resp Effort & Inspection: normal respiratory effort and able to speak in complete sentences Skin Other: Dry skin Mildly thickened skin of her hands Neuro General: patient oriented x3 Extrem Other: No active synovitis Osteoarthritic changes of both hands with Heberden's and Marian's nodes Assessment & Plan Assessment & Plan (1) Positive CONSUELO (antinuclear antibody): Code(s): R76.8 - Other specified abnormal immunological findings in serum Category: Medical Plan: This is a 52-year-old female who presents for evaluation of a positive CONSUELO 1-40 the context of diffuse pain. Thyroid disorders run in the family. Mother has antiphospholipid antibody syndrome on Coumadin. Patient has some mildly thickened skin of her fingers. Will order comprehensive serology to screen for underlying autoimmune rheumatic disease Follow-up in 6 weeks Plan I spent 35 minutes reviewing patient's chart, evaluating patient, ordering diagnostic workup, counseling patient and documenting in the chart Orders: Orders Anti Extractable Nuclear Ag Today M32.9 - Systemic lupus erythematosus, unspecified Complement C4 Today M32.9 - Systemic lupus erythematosus, unspecified DNA Double Stranded-Crithidia Today M32.9 - Systemic lupus erythematosus, unspecified Sjogren's Antibodies Today M32.9 - Systemic lupus erythematosus, unspecified UA w Microscopic Today M32.9 - Systemic lupus erythematosus, unspecified Scleroderma 12 Panel Today M34.9 - Systemic sclerosis, unspecified Liver Kidney Microsomal Ab Today K75.4 - Autoimmune hepatitis Mitochondrial Antibody Today K75.4 - Autoimmune hepatitis Smooth Muscle Antibody Today K75.4 - Autoimmune hepatitis Thyroglobulin Antibodies Today E07.9 - Disorder of thyroid, unspecified Thyroid Peroxidase Antibodies Today E07.9 - Disorder of thyroid, unspecified Complement C3 Today M32.9 - Systemic lupus erythematosus, unspecified Protein Creatinine Ratio, Ur Today M32.9 - Systemic lupus erythematosus, unspecified Hepatitis C Viral Load Today B19.20 - Unspecified viral hepatitis C without hepatic coma MSA Panel Extended Today M60.9 - Myositis, unspecified Coding Level of Care Code Est Pt Level 4 (94551) Diagnoses Positive CONSUELO (antinuclear antibody) R76.8
== END 2023-09-09 13:29 | disposition home or self-care (01) ==
PROVIDERS: PCP Internal Medicine; Visit Provider Student in an Organized Health Care Education/Training Program
DX: R76.8 Other specified abnormal immunological findings in serum (principal)
CPT/HCPCS: 99214

== ENCOUNTER 2023-09-09 12:49 | Outpatient (REF) | payer MEDICARE, SELFPAY ==
[2023-09-09 15:01] LABS: Appearance Urine Clear; Color Urine Yellow; Glucose Urine UA Negative (Negative); Leukocyte Esterase Urine Negative (Negative); Nitrite Urine Negative (Negative); Urine Blood Negative (Negative); Urine Ketones Negative (Negative); Urine Protein Negative (Neg-Trace)
[2023-09-09 15:06] LABS: Bacteria Urine 1+ (None Seen); Hyaline Casts Urine 0-2 /LPF (0-2); RBC Urine 0-2 /HPF (0-2); Squamous Epithelial Cell Urine 0-2 /HPF (0-2); WBC Urine 0-5 /HPF (0-5)
[2023-09-09 15:24] LABS: Creatinine Urine 164.79 mg/dL; Protein/Creatinine Ratio, Ur 0.06 (<0.2); Total Protein Urine Random 10 mg/dL (<12)
[2023-09-11 16:04] LABS: HCV Log PCR <1.18 NOT DETECTED Log IU/mL (NOT DETECTED); HepC Viral Load <15 NOT DETECTED IU/mL (NOT DETECTED)
[2023-09-11 22:48] LABS: Antibody to SS-A Antigen <1.0 NEG AI (<1.0 NEG); Antibody to SS-B Antigen <1.0 NEG AI (<1.0 NEG); SM/Ribonucleoprotein Ab <1.0 NEG AI (<1.0 NEG); Smith Protein <1.0 NEG AI (<1.0 NEG)
[2023-09-12 00:54] LABS: Complement C3 172 mg/dL (83-193)
[2023-09-12 03:24] LABS: Thyroglobulin Antibodies <1 IU/mL (< or = 1); Thyroid Peroxidase Antibodies 390 IU/mL (<9)
[2023-09-14 12:54] LABS: Liver Kidney Microsomal Ab <=20.0 U (<=20.0)
[2023-09-14 15:23] LABS: Mitochondrial Antibodies NEGATIVE (NEGATIVE)
[2023-09-17 15:54] LABS: DNAds, Crithidia Antibody Negative (Negative)
[2023-09-17 16:18] LABS: Centromere Protein A Ab <11 SI (<11); Centromere Protein B Ab <11 SI (<11); Fibrillarin Ab <11 SI (<11); PM SCL 100 Ab <11 SI (<11); PM SCL 75 Ab <11 SI (<11); RNA Polymerase III RP11 Ab <11 SI (<11); RNA Polymerase III RP155 Ab <11 SI (<11); SCL-70 Extractable Nuclear Ab <11 SI (<11); Th-To Ab <11 SI (<11); U1 SNRNP RNP 70KD <11 SI (<11); U1 SNRNP RNP A <11 SI (<11); U1 SNRNP RNP C <11 SI (<11)
[2023-09-17 23:38] LABS: Smooth Muscle Antibody <20 U (<20)
[2023-09-20 15:29] LABS: Cytosolic 5'nuc 1A Ab IgG 22 Units; Ej Ab <11 SI (<11); HMGCR Ab IgG <2 CU (<20); Jo-1 Ab <11 SI (<11); MDA5 Ab <11 SI (<11); Mi-2 alpha Ab <11 SI (<11); Mi-2 beta Ab <11 SI (<11); NXP-2 (MJ) Ab <11 SI (<11); Oj Ab <11 SI (<11); Pl-12 Ab <11 SI (<11); Pl-7 Ab <11 SI (<11); SRP Ab <11 SI (<11); TIF1 gamma Ab <11 SI (<11)
== END 2023-09-09 12:50 | disposition home or self-care (01) ==
LOC: HO.LAB 12:49
PROVIDERS: PCP Internal Medicine; Visit Provider Student in an Organized Health Care Education/Training Program
DX: M32.9 Systemic lupus erythematosus, unspecified (principal); K75.4 Autoimmune hepatitis; E07.9 Disorder of thyroid, unspecified; B19.20 Unspecified viral hepatitis C without hepatic coma; M34.9 Systemic sclerosis, unspecified; R76.8 Other specified abnormal immunological findings in serum
CPT/HCPCS: 36415; 81001; 82570; 83516; 83520; 84156; 84182; 86015; 86160; 86235; 86255; 86376; 86381; 86800; 87522; 99212

== ENCOUNTER 2023-11-05 09:20 | Outpatient (AMB) | payer MEDICARE, SELFPAY ==
[2023-11-05 09:31] VITALS: BP 126/74; PULSE 79; O2SAT 96; BMI 38.9
--- NOTE | 2023-11-05 09:31 | A.OFFVIS_ITS ---
Vital Signs 11/05/23 09:31 Height 5 ft 7 in Weight 248 lb 10.903 oz BMI 38.9 BP 126/74 Blood Pressure Location Lt brachial Position Sitting Pulse 79 Pulse Source Pulse Oximeter Pulse Oximetry (%) 96 Oxygen Delivery Method Room Air Intake Visit Reasons: CONSUELO Intake Note: Patient presents today for follow up on CONSUELO and labs review. Allergies No Known Allergies Allergy (Verified 11/05/23 09:33) Medication List - Last Reconciled 11/05/23 by Jose M Rothman MD ascorbate calcium (vitamin C) 500 mg PO DAILY calcium carbonate (Tums) 300 mg PO BID [cbd oil buccal] chlorhexidine gluconate 0.12% PO cholecalciferol (vitamin D3) 50 mcg PO DAILY 90 days cyclobenzaprine 10 mg PO BEDTIME PRN 7 days diclofenac sodium 1% (Arthritis Pain (diclofenac)) 2 grams topical QID 30 days methadone 110 mg PO DAILY multivitamin 1 tab PO DAILY ondansetron 8 mg PO Q12H PRN 7 days [thc gummies buccal] zinc acetate (Galzin) 50 mg PO DAILY HPI Comments Details: 53-year-old female with positive CONSUELO returns for follow-up after completion of her diagnostic workup. No new complaints PFSH Medical History ELIAZAR (generalized anxiety disorder) Polyarthralgia Screening for diabetes mellitus Anxiety and depression Nausea & vomiting Obesity (BMI 30-39.9) Cigarette smoker motivated to quit Surgical History Hx of colonoscopy H/O hernia repair H/O lumpectomy H/O foot surgery Family History Sister Ovarian cancer Colon cancer Paternal Grandmother History of breast cancer Father Diabetes Family/Other Substance use disorder Mental health disorder Mother Antiphospholipid antibody syndrome Thyroid condition Social History Household Members: Children Household Members Other:: Housing: Apartment Alcohol intake: current Alcohol intake frequency: holidays/special occasions only Alcohol type: wine Patient Tobacco Use Status: Former Tobacco user Tobacco use type: Cigarette e-Cigarette/Vaping Use: Never Used Second Hand Smoke Exposure: No Substance Use Type: Marijuana Advance Directives Date on File: 06/07/20 service: No Current occupational status: disabled Current occupation: right hand dominant Sexual orientation: Straight/Heterosexual Gender identity: Female Cognitive needs: No Hearing needs: No Vision needs: Yes (reading glasses) Female Reproductive History Menstrual Age of Menarche: 15 Total pregnancies: 2 Full term: 1 Ab induced: 1 Review of Systems Musc Reports numbness Neuro Reports numbness Physical Exam Vital Signs: Last Vital Signs Pulse 79 11/05/23 09:31 BP 126/74 11/05/23 09:31 Pulse Ox 96 11/05/23 09:31 Oxygen Delivery Method Room Air 11/05/23 09:31 BMI result Body Mass Index 38.9 Const General: cooperative, healthy appearing and comfortable Nutritional Appearance: obese morbidly obese Orientation/consciousness: patient oriented x3 Limitations: no limitations HEENT Head: Yes normocephalic and Yes atraumatic Mouth: moist mucous membranes Resp Effort & Inspection: normal respiratory effort and able to speak in complete sen tences Skin Other: Dry skin Neuro General: patient oriented x3 Extrem Other: No active synovitis Osteoarthritic changes of both hands with Heberden's and Marian's nodes Assessment & Plan Assessment & Plan (1) Positive CONSUELO (antinuclear antibody): Code(s): R76.8 - Other specified abnormal immunological findings in serum Category: Medical Plan: This is a 53-year-old female who presents for evaluation of a positive CONSUELO 1-40 the context of diffuse pain. Comprehensive serology for underlying autoimmune rheumatic disease is negative. 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 There is no evidence of an autoimmune rheumatic disease at this time She does have a positive TPO antibody and thyroid diseases run in the family. Her TSH level is normal however. I think patient should have her TSH checked annually to detect thyroid disease early Follow-up with me as needed Plan I spent 16 minutes reviewing patient's chart, evaluating patient, counseling patient and documenting in the chart Coding Level of Care Code Est Pt Level 3 (65006) Diagnoses Positive CONSUELO (antinuclear antibody) R76.8
== END 2023-11-05 09:52 | disposition home or self-care (01) ==
PROVIDERS: PCP Internal Medicine; Visit Provider Student in an Organized Health Care Education/Training Program
DX: R76.8 Other specified abnormal immunological findings in serum (principal)
CPT/HCPCS: 99213

== ENCOUNTER → 2023-11-05 09:20 | Outpatient (BNVA) | payer MEDICARE, SELFPAY | PROVIDERS: PCP Internal Medicine; Visit Provider Student in an Organized Health Care Education/Training Program | DX: R76.8 Other specified abnormal immunological findings in serum (principal) | CPT/HCPCS: 99212 ==

== ENCOUNTER 2023-12-28 08:56 | Outpatient (AMB) | payer MEDICARE, SELFPAY ==
--- NOTE | 2023-12-28 09:02 | MHC.PC.OV ---
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 Required: No Accompanied by: Self / Same As Patient Allergies No Known Allergies Allergy (Verified 12/28/23 09:12) Medication List - Last Reconciled 12/28/23 by Cira Corral MD ascorbate calcium (vitamin C) 500 mg PO DAILY calcium carbonate (Tums) 300 mg PO BID [cbd oil buccal] chlorhexidine gluconate 0.12% PO cholecalciferol (vitamin D3) 50 mcg PO DAILY 90 days cyclobenzaprine 10 mg PO BEDTIME PRN 7 days diclofenac sodium 1% (Arthritis Pain (diclofenac)) 2 grams topical QID 30 days methadone 110 mg PO DAILY multivitamin 1 tab PO DAILY ondansetron 8 mg PO Q12H PRN 7 days [thc gummies buccal] zinc acetate (Galzin) 50 mg PO DAILY Tobacco use date assessed: 04/20/23 Dental Screening Dental Screen Date: 12/28/23 Did you have a dental visit in the last 12 months?: Yes Did you have a dental problem in the last 6 months where you did not have access to dental care?: No Was dental information given to patient?: Patient has dentist HPI HPI Comments History of Present Illness Details This is a 53-year-old female with moderate recurrent major depression that comes for her physical exam. Depression is follow by counseling once a week. Mammogram done 2023. Colonoscopy done 2020 and needed to be repeated in 6 months which was not therefore I will refer her again. Pap smear done 2022. She is obese with a BMI of 38.2 and will be referred to weight management. Willing to do weight loss surgery. She also has a skin lesion that is pruritic in the face and will be referred to Dermatology. No chest pain or shortness on breath. She is on methadone maintenance therapy and has been doing well. [facility] Medical History ELIAZAR (generalized anxiety disorder) Polyarthralgia Screening for diabetes mellitus Anxiety and depression Nausea & vomiting Obesity (BMI 30-39.9) Cigarette smoker motivated to quit Surgical History Hx of colonoscopy H/O hernia repair H/O lumpectomy H/O foot surgery Family History (Updated 12/28/23 @ 09:17 by Cira Corral MD) Sister Ovarian cancer, Onset Age: 55 Colon cancer Paternal Grandmother History of breast cancer Father Diabetes Family/Other Substance use disorder Mental health disorder Mother Antiphospholipid antibody syndrome Thyroid condition Social History Household Members: Children Household Members Other:: Housing: Apartment Alcohol intake: current Alcohol intake frequency: holidays/special occasions only Alcohol type: wine Patient Tobacco Use Status: Former Tobacco user Tobacco use type: Cigarette e-Cigarette/Vaping Use: Never Used Second Hand Smoke Exposure: No Substance Use Type: Marijuana Advance Directives Date on File: 06/07/20 service: No Current occupational status: disabled Current occupation: right hand dominant Sexual orientation: Straight/Heterosexual Gender identity: Female Cognitive needs: No Hearing needs: No Vision needs: Yes (reading glasses) Female Reproductive History Menstrual Age of Menarche: 15 Questionnaire PHQ-9 Over the last 2 weeks, how often have you been bothered by any of the following problems? 1. Little interest or pleasure in doing things: several days 2. Feeling down, depressed, or hopeless: several days 3. Trouble falling or staying asleep, or sleeping too much: several days 4. Feeling tired or having little energy: several days 5. Poor appetite or overeating: several days 6. Feeling bad about yourself - or that you are a failure or have let yourself or your family down: several days 7. Trouble concentrating on things, such as reading the newspaper or watching television: several days 8. Moving or speaking so slowly that other people could have noticed. Or the opposite - being so fidgety or restless that you have been moving around a lot more than usual: several days 9. Thoughts that you would be better off or of hurting yourself in some way: not at all Total score: 8 Depression Screening Interpretation: Positive Depression Screening Follow-up: Existing condition, Community Mental Health Worker F/U and Follow-up Visit Requested Depression Screening Done: Yes 30050 - PHQ-9 Billing: Yes Source: Developed by Drs. Matty Hartman, Perfecto Severino and colleagues, with an educational walter from [employer]. Thrive Questionnaire Date Thrive assessed: 12/28/23 I am a: Patient What is your living situation today?: I have a steady place to live Within the past 12 months, did the food you bought not last and you didn't have the money to get more?: Often true Within the past 12 months, did you worry whether your food would run out before you got money to buy more?: Often true Do you have trouble paying for medicines?: No Do you have trouble getting transportation to medical appointments?: Yes Do you have trouble paying your heating and electricity bill?: Yes Do you have trouble taking care of your child, family member or friend?: No Do you have trouble with day-to-day activities such as bathing, preparing meals, shopping, managing finances, etc.?: Yes Are you currently unemployed and looking for a job?: No Are you interested in more education?: Yes Please select the resources that you would like help with: Housing/Correction, Food, Transportation, Utilities, Daily support and Education Currently or been in a relationship where the following occur: I choose not to answer THRIVE Score: 4 AUDIT C Alcohol Use Questionnaire (AUDIT-C) 1. How often do you have a drink containing alcohol?: Monthly or less 2. How many drinks containing alcohol do you have on a typical day when you are drinking?: 1 or 2 3. How often do you have six or more drinks on one occasion?: Never Total Score: 1 Score Reviewed/Action Taken: No ELIAZAR-7 AMB Questionnaire ELIAZAR-7 Date ELIAZAR - 7 assessed: 12/28/23 Feeling nervous, anxious, or on edge: 0 = Not at all Not being able to stop or control worryin = Several days Worrying too much about different things: 1 = Several days Trouble relaxin = Several days Being so restless that it is hard to sit still: 1 = Several days Becoming easily annoyed or irritable: 1 = Several days Feeling afraid as if something awful might happen: 1 = Several days Total ELIAZAR-7 score (0-4 normal; 5-9 mild; 10-14 moderate; 15-21 severe): 6 Source: Developed by Drs. Matty Hartman, Perfecto Severino and colleagues, with an educational walter from [employer]. ELIAZAR-7 Assessment Billing ELIAZAR-7 Assessment Tool: ELIAZAR-7 Assessment 96092 Review of Systems Const All systems reviewed & are unremarkable except as noted in HPI and below Card Denies chest pain at rest, Denies chest pain with activity, Denies edema, Denies irregular heart rhythm, Denies claudication, Denies dyspnea, Denies dyspnea on exertion, Denies orthopnea, Denies paroxysmal nocturnal dyspnea and Denies slow heart rate Resp Denies cough, Denies dyspnea and Denies dyspnea on exertion GI Denies abdominal pain, Denies change in bowel habits, Denies excessive flatus, Denies nausea and Denies vomiting Denies urinary incontinence, Denies urinary hesitancy and Denies urinary urgency Musc Denies abnormal gait, Denies atrophy, Denies deformity and Denies limited range of motion Skin/Breast Denies bleeding lesions, Denies changing lesions and Denies rash Neuro Denies abnormal gait and Denies lack of coordination Physical exam (Primary Care) Vital Signs: Last Vital Signs BP 132/80 12/28/23 09:03 BMI result Body Mass Index 38.2 BMI Assessment/Plan discussion: High BMI High, discussed plan: lifestyle, weight reduction, dietary, physical activity and alcohol moderation Tobacco/Smoking Status: Tobacco use Status Tobacco use date assessed 04/20/23 12/28/23 09:10 Patient Tobacco Use Status Former Tobacco user 12/28/23 09:10 Tobacco use type Cigarette 12/28/23 09:10 e-Cigarette/Vaping Use Never Used 12/28/23 09:10 PHQ-9: PHQ-9 Score PHQ-9: Total score 8 12/28/23 10:18 Depression Screening Interpretation: Positive Depression Screening Follow-up: Existing condition, Community Mental Health Worker F/U and Follow-up Visit Requested Thrive Assessment: Date of Thrive Assessment Date Thrive assessed 12/28/23 12/28/23 09:10 Currently or been in a relationship where the following occur: I choose not to answer HENMT Head: Yes normal to inspection, Yes normocephalic and Yes atraumatic Ears: external ears normal Eyes General: appearance normal, both eyes and all related structures Eyelids: Yes eyelids normal Conjunctivae: conjunctivae normal Neck Neck: Yes normal visual inspection and Yes supple Resp Effort & Inspection: normal respiratory effort Auscultation: clear to auscultation bilaterally Cardio Jugular venous distension: no JVD Rate: regular rate Rhythm: regular rhythm Heart sounds: S1 normal heart sound present and S2 normal heart sound present GI Inspection: Yes normal to inspection Palpation (GI): Soft to palpation and nontender Auscultation: normal bowel sounds Skin General skin exam: no rashes or lesions noted Neuro General: no focal motor deficits Extrem General: Yes full ROM Psych Appearance: grossly normal Office Procedures Flu Questionnaire Does the patient have a severe egg allergy?: No Does the patient have severe life threatening allergies?: No Does the patient have a fever or illness today?: No Has the patient ever had Guillain-[place] Syndrome?: No Has the patient ever had any past reaction to a flu shot?: No Immunizations Fluarix Triv [id number] (PF) 45 mcg (15 mcg x 3)/0.5 mL IM syringe Performing Provider: Cira Corral MD [facility] Administered by: ANA Rain on 12/28/23 09:38 Dose Route Admin Location Dispensed Lot Number Expiration Date NDC Corner Trimmer Operator 0.5 mL IM Left Deltoid 0.5 mL [id number] 09/05/24 [id number] Cheers In VIS Given Date VIS Provided VIS Publication Date 12/28/23 Single Vaccine 20 Eligibility Eligibility Date Funding Source Not [facility] Eligible 12/28/23 Private Coding Level of Care Code Est Pt Level 3 (92375) Est Pt Prev Care 40-64y(46591) Diagnoses Physical exam Z00.00 Skin lesion L98.9 Methadone maintenance therapy patient F11.20 Moderate recurrent major depression F33.1 Additional Codes ELIAZAR-7 Assessment Billing - ELIAZAR-7 Assessment Tool: ELIAZAR-7 Assessment 08179 ([id number]) Time Spent (min) 35 Assessment & Plan Assessment & Plan (1) Physical exam: Code(s): Z00.00 - Encounter for general adult medical examination without abnormal findings Category: Medical Plan: Repeat in a year. (2) Skin lesion: Code(s): L98.9 - Disorder of the skin and subcutaneous tissue, unspecified Category: Medical Plan: Referred to dermatology. (3) Methadone maintenance therapy patient: Code(s): F11.20 - Opioid dependence, uncomplicated Category: Medical Plan: Continue methadone. (4) Moderate recurrent major depression: Code(s): F33.1 - Major depressive disorder, recurrent, moderate Category: Medical Plan: Continue counseling. Orders: Orders Influenza [id number] Immunization Today Z23 - Encounter for immunization Comprehensive [place]. Panel Fast Today Z00.00 - Encounter for general adult medical examination without abnormal findings Vitamin D 25-OH Total Today E55.9 - Vitamin D deficiency, unspecified Referrals Gastroenterology Referral Z12.11 - Encounter for screening for malignant neoplasm of colon Dermatology Referral L98.9 - Disorder of the skin and subcutaneous tissue, unspecified Medical Weight Management Referral E66.812 - Obesity, class 2, Z68.38 - Body mass index [BMI] 38.0-38.9, adult Medications: Refilled cholecalciferol (vitamin D3) 50 mcg PO DAILY 90 days 90 caps 1RF Z00.00 - Encounter for general adult medical examination without abnormal findings
[2023-12-28 09:03] VITALS: BP 132/80; BMI 38.2
== END 2023-12-28 09:41 | disposition home or self-care (01) ==
PROVIDERS: PCP Internal Medicine; Visit Provider Internal Medicine
DX: Z00.00 Encounter for general adult medical examination without abnormal findings (principal); F11.20 Opioid dependence, uncomplicated; F33.1 Major depressive disorder, recurrent, moderate; L98.9 Disorder of the skin and subcutaneous tissue, unspecified

== ENCOUNTER → 2023-12-28 08:56 | Outpatient (BNVA) | payer MEDICARE, SELFPAY | PROVIDERS: PCP Internal Medicine; Visit Provider Internal Medicine | DX: Z00.01 Encounter for general adult medical examination with abnormal findings (principal); L98.9 Disorder of the skin and subcutaneous tissue, unspecified; F11.20 Opioid dependence, uncomplicated; F33.1 Major depressive disorder, recurrent, moderate; Z23 Encounter for immunization | CPT/HCPCS: 90471; 90656; 96127; 99396 ==

== ENCOUNTER 2024-01-11 09:53 | Outpatient (REF) | payer MEDICARE, SELFPAY ==
[2024-01-11 12:49] LABS: Appearance Urine Clear; Color Urine Yellow; Glucose Urine UA Negative (Negative); Leukocyte Esterase Urine Negative (Negative); Nitrite Urine Negative (Negative); PH 7.5 (5.0-9.0); Urine Blood Negative (Negative); Urine Ketones Negative (Negative); Urine Protein Negative (Neg-Trace)
[2024-01-11 13:30] LABS: Alanine Aminotransferase 19 U/L (0-31); Alkaline Phosphatase 80 U/L (39-117); Anion Gap 13 (12-20); Aspartate Amino Transferase 24 U/L (5-31); Bilirubin Total 0.4 mg/dL (0.0-1.0); Blood Urea Nitrogen 11 mg/dL (9-16); Carbon Dioxide 26 mmol/L (22-29); Chloride 105 mmol/L (96-108); Estimated Glomerular Filt Rate > 60; Glucose Fasting 89 mg/dL (60-99); Potassium 4.4 mmol/L (3.3-5.1); Sodium 140 mmol/L (135-145); Total Protein 7.3 g/dL (6.5-8.0)
[2024-01-11 13:44] LABS: Vitamin D 25-OH Total 32.6 ng/mL (>30)
== END 2024-01-11 09:54 | disposition home or self-care (01) ==
LOC: HO.LAB 09:53
PROVIDERS: PCP Internal Medicine; Visit Provider Physician Assistant Surgical
DX: Z00.00 Encounter for general adult medical examination without abnormal findings (principal); R30.0 Dysuria; E55.9 Vitamin D deficiency, unspecified
CPT/HCPCS: 36415; 80053; 81003; 82306

== ENCOUNTER 2024-05-06 15:56 | Outpatient (AMB) | payer MEDICARE, SELFPAY ==
--- NOTE | 2024-05-06 16:01 | A.OFFPC_ITS ---
Vital Signs 05/06/24 16:02 Height 5 ft 7 in Weight 241 lb 4 oz BMI 37.8 BP 140/72 H Blood Pressure Location Lt brachial Position Sitting Pulse 68 Pulse Source Pulse Oximeter Temp 97.5 F Temp Source Temporal Artery Scan Pulse Oximetry (%) 92 Oxygen Delivery Method Room Air Intake Visit Reasons: Charla Choudhary 05/02 dizziness Intake Note: Patient is here to follow-up after a visit the emergency department at [facility] on 05/02/24 Travel Accommodation Inspector Required: No Food Safety Technician: Present Accompanied by: Son Allergies No Known Allergies Allergy (Verified 05/06/24 16:02) Tobacco use date assessed: 05/06/24 Dental Screening Dental Screen Date: 05/06/24 Did you have a dental visit in the last 12 months?: No Did you have a dental problem in the last 6 months where you did not have access to dental care?: No Was dental information given to patient?: No HPI HPI Comments History of Present Illness Details 53 y/o female patient who presents to [facility] for HDF. Pt was admitted at [facility] on 05/02/24 for Paroxysmal Vertigo and discharged home the same day. She was prescribed Meclizine with some relief. PFSH Medical History Vertigo ELIAZAR (generalized anxiety disorder) Polyarthralgia Screening for diabetes mellitus Anxiety and depression Nausea & vomiting Obesity (BMI 30-39.9) Cigarette smoker motivated to quit Surgical History Hx of colonoscopy H/O hernia repair H/O lumpectomy H/O foot surgery Family History Sister Ovarian cancer, Onset Age: 55 Colon cancer Paternal Grandmother History of breast cancer Father Diabetes Family/Other Substance use disorder Mental health disorder Mother Antiphospholipid antibody syndrome Thyroid condition Social History (Updated 05/06/24 @ 16:08 by ANA Nickerson) Household Members: Children Household Members Other:: Housing: Apartment Alcohol intake: current Alcohol intake frequency: holidays/special occasions only Alcohol type: wine Patient Tobacco Use Status: Former Tobacco user Tobacco use type: Cigarette e-Cigarette/Vaping Use: Currently Using Frequency of e-Cigarette/Vaping Use: Daily Second Hand Smoke Exposure: Yes Substance Use Type: Marijuana Advance Directives Date on File: 06/07/20 service: No Current occupational status: disabled Current occupation: right hand dominant Sexual orientation: Straight/Heterosexual Gender identity: Female Cognitive needs: No Hearing needs: No Vision needs: Yes (reading glasses) Female Reproductive History Menstrual Age of Menarche: 15 Questionnaire PHQ-9 Over the last 2 weeks, how often have you been bothered by any of the following problems? 1. Little interest or pleasure in doing things: not at all 2. Feeling down, depressed, or hopeless: not at all 3. Trouble falling or staying asleep, or sleeping too much: not at all 4. Feeling tired or having little energy: not at all 5. Poor appetite or overeating: not at all 6. Feeling bad about yourself - or that you are a failure or have let yourself or your family down: not at all 7. Trouble concentrating on things, such as reading the newspaper or watching television: not at all 8. Moving or speaking so slowly that other people could have noticed. Or the opposite - being so fidgety or restless that you have been moving around a lot more than usual: not at all 9. Thoughts that you would be better off or of hurting yourself in some way: not at all Total score: 0 Depression Screening Interpretation: Negative Depression Screening Done: Yes Source: Developed by Drs. Matty Hartman, Gia Limon, Perfecto Santamaria and colleagues, with an educational walter from [employer]. Thrive Questionnaire Date Thrive assessed: 05/06/24 AUDIT C Alcohol Use Questionnaire (AUDIT-C) 1. How often do you have a drink containing alcohol?: Monthly or less 2. How many drinks containing alcohol do you have on a typical day when you are drinking?: 1 or 2 Total Score: 1 ELIAZAR-7 AMB Questionnaire ELIAZAR-7 Date ELIAZAR - 7 assessed: 05/06/24 Feeling nervous, anxious, or on edge: 0 = Not at all Not being able to stop or control worryin = Not at all Worrying too much about different things: 0 = Not at all Trouble relaxin = Not at all Being so restless that it is hard to sit still: 0 = Not at all Becoming easily annoyed or irritable: 0 = Not at all Feeling afraid as if something awful might happen: 0 = Not at all Total ELIAZAR-7 score (0-4 normal; 5-9 mild; 10-14 moderate; 15-21 severe): 0 Source: Developed by Drs. Matty Hartman, Gia Limon, Perfecto Santamaria and colleagues, with an educational walter from [employer]. Review of Systems Const All systems reviewed & are unremarkable except as noted in HPI and below Physical exam (Primary Care) Vital Signs: Last Vital Signs Temp 97.5 F 05/06/24 16:02 Pulse 68 05/06/24 16:02 BP 140/72 H 05/06/24 16:02 Pulse Ox 92 05/06/24 16:02 Oxygen Delivery Method Room Air 05/06/24 16:02 BMI result Body Mass Index 37.8 Tobacco/Smoking Status: Tobacco use Status Tobacco use date assessed 05/06/24 05/06/24 16:06 Patient Tobacco Use Status Former Tobacco user 05/06/24 16:08 Tobacco use type Cigarette 05/06/24 16:08 e-Cigarette/Vaping Use Currently Using 05/06/24 16:09 PHQ-9: PHQ-9 Score PHQ-9: Total score 0 05/06/24 16:34 Depression Screening Interpretation: Negative Thrive Assessment: Date of Thrive Assessment Date Thrive assessed 05/06/24 05/06/24 16:06 Const General: cooperative and no acute distress Nutritional Appearance: obese Orientation/consciousness: patient oriented x3 HENMT Head: Yes normocephalic Ears: external ears normal and TM abnormal with fluid behind the TM bilateral Face and sinus: Yes sinuses nontender Mouth: moist mucous membranes Neuro General: patient oriented x3 Coding Level of Care Code Est Pt Level 4 (76547) Diagnoses Vertigo R42 Time Spent (min) 20 Assessment & Plan Assessment & Plan (1) Vertigo: Code(s): R42 - Dizziness and giddiness Category: Medical Plan: Prescribed Meclizine 50 mg BID Zyrtec 10mg BID Discussed Vestibular therapy Medications: New meclizine 50 mg PO BID 30 tabs 0RF R42 - Dizziness and giddiness cetirizine (Zyrtec) 10 mg PO DAILY 20 tabs 0RF R42 - Dizziness and giddiness
[2024-05-06 16:02] VITALS: BP 140/72; PULSE 68; TEMP 36.4; O2SAT 92; BMI 37.8
--- OUTSIDE RECORDS SUMMARY | 2024-05-06 17:52 | XMS_ITS | Clinical Summary ---
Author Organization [employer] Address [address] [place] [address] [address] [place] [address] Care Team Providers Care Diamond Broker Name Role Phone Unavailable Primary Care Provider Unavailabl e Allergies No known active allergies Medications chlorhexidine (Peridex) 0.12 % solution SWISH WITH 20ML FOR 30 SECONDS THEN SPIT IN THE MORNING AND AT NIGHT AFTER BRUSHING TEETH AND MEALS DO NOT EAT OR DRINK FOR 30 MINUTES AFTER 08/17/2023 Active cholecalciferol VITAMIN D (Vitamin D-3) 50 MCG (1999 UT) capsule Take by mouth Once per day. 06/23/2023 Active Social History Tobacco Use Types Packs/Day Years Used Date Smoking Tobacco: Never Smokeless Tobacco: Never Tobacco Cessation:Counseling Given: Not Answered Alcohol Use Standard Drinks/Week Comments Not Currently 0 (1 standard drink = 0.6 oz pur e alcohol) Comments Unknown Sex and Gender Information Value Date Recorded Sex Assigned at Female 01/06/2022 10:16 AM EDT Legal Sex Female 10:16 AM EDT Gender Identity Choose not to disclose 10:16 AM EDT Sexual Orientation Choose not to disclose 2021 10:16 AM EDT Last Filed Vital Signs Vital Sign Reading Time Taken Comments Blood Pressure 151/97 12/16/2023 12:42 PM EDT Pulse 75 12/16/2023 12:42 PM EDT Temperature 36.8 ??C (98.3 ??F) 12/16/2023 12:42 PM E DT Respiratory Rate - - Oxygen Saturation - - Inhaled Oxygen Concentration - - Weight - - Height - - Body Mass Index - - Plan of Treatment Health Maintenance Due Date Last Done Comments CT Colonography 1969 Colonoscopy 1969 Colorectal Cancer Screening 1969 Dental Prophylaxis 1969 Dental X-Ray: Bitewings 1969 Depression Screening 1969 FIT DNA/Cologuard 1969 FIT 1969 FOBT 1969 HIV Screening 1969 SDOH Screening 1969 Sigmoidoscopy 1969 Alcohol/Substance Use Screening 1981 Hepatitis C Screening 09/20/1987 Hepatitis B Vaccines (1 of 3 - 19+ 3-dose series) 1988 Pap Smear 1990 Cervical Cancer Screening 09/20/1999 HPV/Cotest 09/20/1999 Mammogram 2009 Dental Oral Exam 02/24/2018 08/24/2017 Pneumococcal Vaccine: 50+ Years (1 of 1 - PCV) 09/20/2019 Zoster Vaccines (1 of 2) 09/20/2019 COVID-19 Vaccine (4 - 2023-2 5 season) 2023 04/16/2021, 08/23/2020, 08/02/2020 Influenza Vaccine (#1) 2023 , 04/13/2019, 12/28/2015 Tobacco Screening 12/15/2024 12/16/2023 DTaP/Tdap/Td Vaccines (2 - T d or Tdap) 12/27/2025 12/28/2015 Dental X-Ray: Full Mouth 12/03/2026 024, 08/24/2017 RSV Patients and Patients Aged 60 years or older (1 - 1-dose 75+ series) 2044 HIB Vaccines Aged Out No longer eligi ble based on patient's age to complete this topic HPV Vaccines Aged Out No longer eligi ble based on patient's age to complete this topic Hepatitis A Vaccines Aged Out No long er eligible based on patient's age to complete this topic IPV Vaccines Aged Out No longer eligi ble based on patient's age to complete this topic Meningococcal Vaccine Aged Out No suraj stefanie eligible based on patient's age to complete this topic RSV under 20 months Aged Out No longe r eligible based on patient's age to complete this topic Rotavirus Vaccines Aged Out No longer eligible based on patient's age to complete this topic Procedures Procedure Name Priority Date/Time Associated Diagnosis Comments Full PANORAMIC RADIOGRAPHIC IMAGE Routine 12/03/2023 9:00 AM EDT COMPREHENSIVE ORAL EVALUATION - NEW OR ESTABLISHED PATIENT Routine 08/24/2017 12:00 AM EDT from Last 3 Months or Most Recently Relevant to Health Maintenance Insurance [facility] D[facility] - [facility]
--- OUTSIDE RECORDS SUMMARY | 2024-05-06 17:52 | XMS_ITS | Encounter Summary ---
Author Organization [employer] Address [address] [place] [address] [address] [place] [address] Care Team Providers Care Customs Appraiser Name Role Phone Unavailable Primary Care Provider Unavailabl e Encounter Details Date Type Department Care Team ([facility] st Contact Info) Description 11/25/2023 Telephone [facility] [address] [place] [address] Jeff Santana, DDS [address] [place], [place] [id number] Social History Tobacco Use Types Packs/Day Years Used Date Smoking Tobacco: Never Assessed Comments Unknown Sex and Gender Information Value Date Recorded Sex Assigned at Female 01/06/2022 10:16 AM EDT Legal Sex Female 10:16 AM EDT Gender Identity Choose not to disclose 10:16 AM EDT Sexual Orientation Choose not to disclose 2021 10:16 AM EDT documented as of this encounter Miscellaneous Notes * Telephone Encounter - Ramses Padilla - 11/26/2023 3:19 PM EDT Opal left a voicemail requesting to speak to us about this patient * Telephone Encounter - Sweta Nava - 11/25/2023 11:06 AM EDT Opal at [facility] would like to speak to Shu Aldridge about pt documented in this encounter Plan of Treatment Not on file documented as of this encounter Visit Diagnoses Not on filedocumented in this encounter
--- OUTSIDE RECORDS SUMMARY | 2024-05-06 17:52 | XMS_ITS ---
Author Name MS. Darrius Hammond APRN Address [address] [place] [id number] Phone [phone] [facility] Care Team Providers Care Physical Chemistry Professor Name Role Phone Miracle Hammond Unavailable [phone] Unavailable Unavailable Unavailable Reason for Referral Not Available Allergies, adverse reactions, alerts No known allergies History of medication use Medication Class Instructions Start Date End Date Ondansetron 8 mg Tab Disintegrating 1 tablet orally every 8 hours as needed nausea 2023-01-02 No Data Available Methadone 10 mg/5ML Solution (110 mg) po QD 2023-01-02 No Data Available Cyclobenzaprine 10 mg Tab TAKE 1 TABLET BY MOUTH AT BEDTIME FOR 7 DAYS NEEDED FOR MUSCLE SPASM 2023-04-20 No Data Available Diclofenac Sodium 1 % Gel No Data Available 2023-04-20 No Data Available Vitamin D3 50 MCG (2000 UT) Cap TAKE 1 CAPSULE BY MOUTH EVERY DAY 2023-06-23 No Data Available Chlorhexidine Gluconate 0.12 % Solution SWISH WITH 20ML FOR 30 SECONDS THEN SPIT IN THE MORNING AND AT NIGHT AFTER BRUSHING TEETH AND MEALS DO NOT EAT OR DRINK FOR 30 MINUTES AFTER 2023-08-13 No Data Available Tums E-X 750 750 mg Tab Chewable as directed 2023-09-08 No Data Available Zinc 50 mg Tab Takes 1 capsule by m outh daily 2023-09-08 No Data Available Vitamin C 500 mg Tab 1 tab PO daily 2023-09-08 No Da ta Available Daily Value Multivitamin Tab take 1 tabl et by mouth daily 2023-09-08 No Data Available Cyclobenzaprine 10 mg Tab 1 tablet po at hs prn for muscle spasms 2023-09-08 No Data Available Diclofenac Sodium 1 % Gel 4 grams topica lly to affected area 4 times per day PRN 2023-09-08 No Data Available CBD / THC tinture oil as directed 2023-09-08 No Samson a Available CBD / THC gummy as directed 2023-09-08 No Data Avai lable Meloxicam 15 mg Tab 1 capsule orally QD for arthritis pain and inflammation 2023-09-08 No Data Available Problem List Problem Status Onset Date Resolved Date History of substance use disorder Active 2022-12 N/A Cyclic vomiting syndromeGERD (gastroesophageal reflux disease) Active 2023-01-02 N/A Vitamin D deficiencyVitamin deficiency Active 29-09-01 N/A Other problems related to [facility] facilities and other health care Active 2023-09-08 N/A Unsteady gaitRisk for falls Active 2023-09-08 N/A CTS (carpal tunnel syndrome) Chronic painRA (rheumatoid arthritis) with Immunodeficiency due to conditions classified elsewhere Active 2023-09-08 N/A Encounters Encounters Type Facility Date of Service Diagnosis/Co mplaint New patient, 30-44min 1 stable chronic or 2 minor; add modifier 95 for video, modifier 93 for phone [facility]23 Cyclical vomiting syndrome unrelated to migraineOther psychoactive substance use, unspecified, uncomplicated New patient, 30-44min 1 stable chronic or 2 minor; add modifier 95 for video, modifier 93 for phone [facility], [place] 01/02/2023 New patient, 30-44min 1 stable chronic or 2 minor; add modifier 95 for video, modifier 93 for phone [facility]2023 New patient, 30-44min 1 stable chronic or 2 minor; add modifier 95 for video, modifier 93 for phone [facility]2023 New patient, 30-44min 1 stable chronic or 2 minor; add modifier 95 for video, modifier 93 for phone [facility] 01/02/2023 New patient, 30-44min 1 stable chronic or 2 minor; add modifier 95 for video, modifier 93 for phone [facility] 01[place]/2023 Estab. patient 30-39min; chronic exacerbation, 2 stable chronic or 1 acute illness add add modifier 95 for video, (do not use for phone, instead use [id number]) [facility] 09[place]/2023 Gastro-esophageal reflux disease without esophagitisCyclical vomiting syndrome unrelated to migrainePersonal history of other specified conditionsCarpal tunnel syndrome, unspecified upper limbOther chronic painRheumatoid arthritis, unspecifiedVitamin D deficiency, unspecifiedVitamin deficiency, unspecifiedOther problems related to medical facilities and other health careUnsteadiness on feetHistory of falling Estab. patient 30-39min; chronic exacerbation, 2 stable chronic or 1 acute illness add add modifier 95 for video, (do not use for phone, instead use [id number]) [facility] 09[place]/2023 Estab. patient 30-39min; chronic exacerbation, 2 stable chronic or 1 acute illness add add modifier 95 for video, (do not use for phone, instead use [id number]) [facility] 09[place]/2023 Estab. patient 30-39min; chronic exacerbation, 2 stable chronic or 1 acute illness add add modifier 95 for video, (do not use for phone, instead use [id number]) [facility]23 Estab. patient 30-39min; chronic exacerbation, 2 stable chronic or 1 acute illness add add modifier 95 for video, (do not use for phone, instead use [id number]) [facility]/2023 Estab. patient 30-39min; chronic exacerbation, 2 stable chronic or 1 acute illness add add modifier 95 for video, (do not use for phone, instead use [id number]) [facility]/2023 Estab. patient 30-39min; chronic exacerbation, 2 stable chronic or 1 acute illness add add modifier 95 for video, (do not use for phone, instead use [id number]) [facility]/2023 Estab. patient 30-39min; chronic exacerbation, 2 stable chronic or 1 acute illness add add modifier 95 for video, (do not use for phone, instead use [id number]) [facility] [place]/2023 Estab. patient 30-39min; chronic exacerbation, 2 stable chronic or 1 acute illness add add modifier 95 for video, (do not use for phone, instead use [id number]) [facility] 09/[place]/2023 Vital Signs Date of Collection Vitals 2023-01-02 08:34:49 Height - 170.18 cmWe ight - 97.52 kgBody Mass Index (BMI) - 33.67 kg/m2 2023-09-08 10:11:47 Height - 172.72 cmWe ight - 101.61 kgBody Mass Index (BMI) - 34.06 kg/m2BP Diastolic - 72.0 mm[Hg]BP Systolic - 120.0 mm[Hg]Heart Rate - 88.0 /minO2 % BldC Oximetry - 94.0 % Social History Social History Social History Observation Description Effec tive Time Current Smoking Status Former smoker 2024-04-10 8 Sex Female History of Procedures Procedures Service Procedure code Service date Servicing provider Phone# New patient, 30-44min 1 stable chronic or 2 minor; add modifier 95 for video, modifier 93 for phone [id number] 2023-01-02 No Data Available No Data Available BMI obtained (3008F) 3008F 2023-01-02 No Data Availab le No Data Available Advance care planning discussed and documented in the medical record ? beneficiary/patient did not wish to or was unable to provide an advance care plan or name a surrogate decision-maker. (1124F) 1124F 2023-01-02 No Data Available No Data Availa ble Pain Assessment - Pain Documented on a Pain Scale (1125F) 1125F 2023-01-02 No Data Available No Data Josie ilable Functional Status Assessed (1170F) 1170F 2023-01-02 No Data Available No Data Avail able Medication List Documented (1159F) 1159F 2023-01-02 No Data Available No Data Josie ilable Estab. patient 30-39min; chronic exacerbation, 2 stable chronic or 1 acute illness add add modifier 95 for video, (do not use for phone, instead use [id number]) 68465 2023-09-08 No Data Available No Data Availa ble Medication Review by prescribing provider or pharmacist documented (1160F) 1160F 2023-09-08 No Data Available No Data Josie ilable Advance Care Directive Advance care planning discussion documented in the medical record (1158F) 1158F 2023-09-08 No Data Available No Data Availa ble Advance care planning discussed and documented ? advance care plan or surrogate decision-maker was documented in the medical record. (1123F) 1123F 2023-09-08 No Data Available No Data Availa ble Medication List Documented (1159F) 1159F 2023-09-08 No Data Available No Data Josie ilable Functional Status Assessed (1170F) 1170F 2023-09-08 No Data Available No Data Avail able SBP < 130 (3074F) 3074F 2023-09-08 No Data Available No Data Available DBP <80 (3078F) 3078F 2023-09-08 No Data Available No Data Available BMI obtained (3008F) 3008F 2023-09-08 No Data Availab le No Data Available Functional Status Functional Category Effective Dates ADL Eating: Independent; Amb ulation: occ uses cane; Dressing: Independent; Bathing: Independent; Toileting: Independent 2023-09-08 IADL Shopping: Some Help Nee ded; Housekeeping: Some Help Needed; Meal Prep: Some Help Needed; Medications Management: Independent 2023-01-02 Falls in last 6 Months: No 2023-01-02 Mental Status Status Date A&Ox3 2023-09-08 Assessments Date of Service Assessments 2023-01-02 08:34:49 Cyclic vomiting synd romeRx: OndansetronSubstance use disorderRx: MethadoneMember was prior addicted to Radha that she was on for 20 years 2023-09-08 10:11:47 Cyclic vomiting synd romeGERD (gastroesophageal reflux disease)History of substance use disorderCTS (carpal tunnel syndrome)Chronic painRA (rheumatoid arthritis)Vitamin D deficiencyVitamin deficiencyOther problems related to medical facilities and other [facility] Plan of Care Date of Service Plans 2023-01-02 08:34:49 BMI obtained (3008F) Televideo new patient, 30-44min 1 stable chronic or 2 minor; add modifier 95Pain Assessment - Pain Documented (1125F)Advance care planning discussed and documented in the medical record ? beneficiary/patient did not wish to or was unable to provide an advance care plan or name a surrogate decision-maker. (1124F)Continue to see PCP. Follow-up with Ana as needed for any acute or disease education needs that may arise 29/09. 2023-09-08 10:11:47 Medication Review by prescribing provider or pharmacist documented (1160F)Medication List Documented (1159F)Functional Status Assessed (1170F)Advance Care Directive Advance care planning discussion documented in the medical record (1158F)BMI obtained (3008F)SBP < 130 (3074F)DBP <80 (3078F)Televideo 30-39min; chronic exacerbation, 2 stable chronic or 1 acute illness add modifier 95Advance care planning discussed and documented ? advance care plan or surrogate decision-maker was documented in the medical record. (1123F)Pain Assessment - NO pain documented (1126F)Continue to see PCP. Follow-up with Ana as needed for any acute or disease education needs that may arise.managed with Ondansetron 8 mg Tab Disintegrating 1 tablet orally every 8 hours as needed nauseaTums E-X 750 750 mg Tab Chewable as directedRx: Methadonehx of addiction for more than 20yrs drug of choice Radha - has been doing well with controlled medications/plan of careCTS: following with ortho- says surgery is planned for OctoberA: following with rheum- not on any meds at this time- will order anti-inflammatory to help with chronic pain/inflammation 09/08/2023eRx New Meloxicam 15 mg Tab 1 capsule orally QD for arthritis pain and inflammation #30 tablet DSd8Eunmdtlbvzenejs 10 mg Tab 1 tablet po at hs prn for muscle spasmsDiclofenac Sodium 1 % Gel 4 grams topically to affected area 4 times per day PRNCBD / THC tinture oil as directedcontinue plan of care and follow up as instructedDaily Value Multivitamin Tab take 1 tablet by mouth dailyTums E-X 750 750 mg Tab Chewable as directedVitamin C 500 mg Tab 1 tab PO dailyVitamin D3 50 MCG (1999 UT) Cap TAKE 1 CAPSULE BY MOUTH EVERY DAYZinc 50 mg Tab Takes 1 capsule by mouth dailyRemember, if you experience any of the following symptoms: ? More pain than normal ? More stiff than usual ? Needing to take more pain medication than usualCall Ana at , we can help!pt in need of cane for support and steadyingwas borrowing one- no longer has access toaddress confirmed Health Concerns Date Concern 2023-09-08 Visit completed jace salas audio/video. Patient/Guardian agreed to visit via telehealth. Today, patient has chief complaint of: follow up care and comprehensive review.Reviewed Allergies, Medications, Active Medical conditions, past medical/surgical history, Social history. 2023-09-08 Advance Care Planaudra salas -rishi Mendes is POA 2023-09-08 Most recent hospital stay(s) or ER visit(s) and precipitating factors: no recent visits 2023-09-08 last labs Jan 13 2023 - was + for low Vit D- has been taking supplement - Has rheum appt 09/09/23, next PCP appt and follow up labs November
== END 2024-05-06 16:39 | disposition home or self-care (01) ==
PROVIDERS: PCP Internal Medicine; Visit Provider Nurse Practitioner Family
DX: R42 Dizziness and giddiness (principal)

== ENCOUNTER → 2024-05-06 15:56 | Outpatient (BNVA) | payer MEDICARE, SELFPAY | PROVIDERS: PCP Internal Medicine; Visit Provider Nurse Practitioner Family | DX: R42 Dizziness and giddiness (principal) | CPT/HCPCS: 99212 ==

== ENCOUNTER 2024-05-24 13:15 | Outpatient (AMB) | payer MEDICARE, SELFPAY ==
--- NOTE | 2024-05-24 13:19 | A.OFFPC_ITS ---
Vital Signs 05/24/24 13:20 Height 5 ft 7 in Weight 250 lb 6 oz BMI 39.2 BP 132/86 Blood Pressure Location Lt brachial Position Sitting Pulse 97 Pulse Source Pulse Oximeter Temp 97.5 F Temp Source Temporal Artery Scan Pulse Oximetry (%) 92 Oxygen Delivery Method Room Air Intake Visit Reasons: referral due to vertigo Intake Note: Patient is here to follow up on referral for vertigo. Production Underwriter Required: No Flight Control Tower Operator: Not Required per policy Accompanied by: Self / Same As Patient Allergies No Known Allergies Allergy (Verified 05/24/24 13:39) Medication List - Last Reconciled 05/24/24 by Cira Corral MD ascorbate calcium (vitamin C) 500 mg PO DAILY calcium carbonate (Tums) 300 mg PO BID [cbd oil buccal] cetirizine (Zyrtec) 10 mg PO DAILY chlorhexidine gluconate 0.12% PO cholecalciferol (vitamin D3) 50 mcg PO DAILY 90 days cyclobenzaprine 10 mg PO BEDTIME PRN 7 days diclofenac sodium 1% (Arthritis Pain (diclofenac)) 2 grams topical QID 30 days meclizine 50 mg PO BID methadone 110 mg PO DAILY multivitamin 1 tab PO DAILY ondansetron 8 mg PO Q12H PRN 7 days [Shower chair As directed] [thc gummies buccal] zinc acetate (Galzin) 50 mg PO DAILY Tobacco use date assessed: 05/24/24 Dental Screening Dental Screen Date: 05/06/24 HPI HPI Comments History of Present Illness Details The patient is a 53-year-old female presenting with dizziness and vertigo. On May 02, she experienced abrupt onset dizziness and spinning sensations of her environment, which worsened to the point of incapacitation. Associated symptoms included nausea and vomiting, lasting approximately 24 hours. She sought emergency care after persistent symptoms, where Benign Paroxysmal Positional Vertigo (BPPV) was diagnosed following a positive Chema- Hallpike maneuver. Meclizine was prescribed, providing partial symptom relief, yet she remains affected by balance and vision disturbances, exacerbated by quick head movements. Previous intermittent tinnitus resolved before her vertigo onset. Neurological evaluations ruled out stroke, aligning with BPPV diagnosis. 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 [facility] Medical History Vertigo ELIAZAR (generalized anxiety disorder) Polyarthralgia Screening for diabetes mellitus Anxiety and depression Nausea & vomiting Obesity (BMI 30-39.9) Cigarette smoker motivated to quit Surgical History Hx of colonoscopy H/O hernia repair H/O lumpectomy H/O foot surgery Family History Sister Ovarian cancer, Onset Age: 55 Colon cancer Paternal Grandmother History of breast cancer Father Diabetes Family/Other Substance use disorder Mental health disorder Mother Antiphospholipid antibody syndrome Thyroid condition Social History Household Members: Children Household Members Other:: Housing: Apartment Alcohol intake: current Alcohol intake frequency: holidays/special occasions only Alcohol type: wine Patient Tobacco Use Status: Former Tobacco user Tobacco use type: Cigarette e-Cigarette/Vaping Use: Currently Using Second Hand Smoke Exposure: Yes Substance Use Type: Marijuana Advance Directives Date on File: 06/07/20 service: No Current occupational status: disabled Current occupation: right hand dominant Sexual orientation: Straight/Heterosexual Gender identity: Female Cognitive needs: No Hearing needs: No Vision needs: Yes (reading glasses) Female Reproductive History Menstrual Age of Menarche: 15 Questionnaire Thrive Questionnaire Date Thrive assessed: 05/06/24 ELIAZAR-7 AMB Questionnaire ELIAZAR-7 Date ELIAZAR - 7 assessed: 05/06/24 Source: Developed by Drs. Matty Hartman, Gia Limon, Perfecto Santamaria and colleagues, with an educational walter from [employer]. Review of Systems Const All systems reviewed & are unremarkable except as noted in HPI and below Card Denies chest pain at rest, Denies chest pain with activity, Denies edema, Denies irregular heart rhythm, Denies claudication, Denies dyspnea, Denies dyspnea on exertion, Denies orthopnea, Denies paroxysmal nocturnal dyspnea and Denies slow heart rate Resp Denies cough, Denies dyspnea and Denies dyspnea on exertion GI Denies abdominal pain, Denies change in bowel habits, Denies excessive flatus, Denies nausea and Denies vomiting Denies urinary incontinence, Denies urinary hesitancy and Denies urinary urgency Musc Denies atrophy, Denies deformity and Denies limited range of motion Skin/Breast Denies bleeding lesions, Denies changing lesions and Denies rash Physical exam (Primary Care) Vital Signs: Last Vital Signs Temp 97.5 F 05/24/24 13:20 Pulse 97 05/24/24 13:20 BP 132/86 05/24/24 13:20 Pulse Ox 92 05/24/24 13:20 Oxygen Delivery Method Room Air 05/24/24 13:20 BMI result Body Mass Index 39.2 BMI Assessment/Plan discussion: High BMI High, discussed plan: lifestyle, weight reduction, dietary and physical activity Tobacco/Smoking Status: Tobacco use Status Tobacco use date assessed 05/24/24 05/24/24 13:24 Patient Tobacco Use Status Former Tobacco user 05/24/24 13:24 Tobacco use type Cigarette 05/24/24 13:24 e-Cigarette/Vaping Use Currently Using 05/24/24 13:24 Thrive Assessment: Date of Thrive Assessment Date Thrive assessed 05/06/24 05/24/24 13:24 Resp Effort & Inspection: normal respiratory effort Auscultation: clear to auscultation bilaterally Cardio Jugular venous distension: no JVD Rate: regular rate Rhythm: regular rhythm Heart sounds: S1 normal heart sound present and S2 normal heart sound present Extrem General: Yes full ROM Coding Level of Care Code Est Pt Level 3 (28898) Complex EM visit Add On G2211 Diagnoses Benign paroxysmal positional vertigo due to bilateral vestibular disorder H8 1.13 Laterality: bilateral Moderate recurrent major depression F33.1 Methadone maintenance therapy patient F11.20 Time Spent (min) 19 Assessment & Plan Assessment & Plan (1) BPPV (benign paroxysmal positional vertigo): Code(s): H81.10 - Benign paroxysmal vertigo, unspecified ear Category: Medical Qualifiers: Laterality: bilateral Qualified Code(s): H81.13 - Benign paroxysmal vertigo, bilateral (2) Moderate recurrent major depression: Code(s): F33.1 - Major depressive disorder, recurrent, moderate Category: Medical (3) Methadone maintenance therapy patient: Code(s): F11.20 - Opioid dependence, uncomplicated Category: Medical Plan In managing the benign paroxysmal positional vertigo BPPV), I recommend vestibular therapy to realign displaced inner ear crystals. This therapy focuses on gradual adjustment to mitigate symptoms and teach corrective techniques for future episodes. Meclizine's continued use will be monitored, balancing its benefits in symptom relief against the potential for rebound dizziness. A cautious approach to rapid head movements will aid in symptom management. Follo w-up evaluations will ensure effective treatment progression and address any additional concerns. Patient was informed and verbally consented to the use of an ambient scribe for clinic note documentation during this visit. I discussed with the patient the nature of Benign Paroxysmal Positional Vertigo (BPPV) and emphasized that vestibular therapy is the primary treatment to reposition the ear crystals responsible for vertigo. We covered the possibility of symptom recurrence and the importance of learning self-management techniques during therapy. Meclizine was examined for short-term symptomatic relief, albeit cautioning its longer-term use due to potential rebound dizziness. I advised slow, deliberate movements to avoid exacerbating symptoms. Follow-up will focus on assessing therapy outcomes and maintaining symptom control. Orders: Orders PT Evaluation and Treatment Today H81.10 - Benign paroxysmal vertigo, unspecified ear Patient Instructions: - Attend vestibular therapy sessions as scheduled to alleviate vertigo symptoms. - Avoid abrupt head movements to help manage dizziness. - Follow-up with the clinic as planned in June. - Continue to take the prescribed medications as directed, evaluating effectiveness. - Monitor symptoms and report any significant changes or worsening of dizzy spells. - Attend scheduled appointments for vestibular therapy and practice techniques learned. - Contact the clinic sooner if symptoms intensify or new symptoms arise.
[2024-05-24 13:20] VITALS: BP 132/86; PULSE 97; TEMP 36.4; O2SAT 92; BMI 39.2
--- OUTSIDE RECORDS SUMMARY | 2024-05-24 15:36 | XMS_ITS ---
Author Name MS. Darrius Hammond APRN Address [address] [place] [address] Phone [phone] [facility] Care Team Providers Care Towel Weaver Name Role Phone Miracle Hammond Unavailable [phone] Reason for Referral Not Available Allergies, adverse [...] Active 29-09-01 N/A Other problems related to [facility] facilities and other health care Active 2023-09-08 N/A Unsteady gaitRisk for falls Active 2023-09-08 N/A CTS (carpal tunnel syndrome) Chronic painRA (rheumatoid arthritis) with Immunodeficiency due to conditions classified elsewhere Active 2023-09-08 N/A Encounters Encounters Type Facility Date of Service Diagnosis/Co mplaint New patient, 30-44min 1 stable chronic or 2 minor; add modifier 95 for video, modifier 93 for phone [facility], ([place]) [place]/2023 Cyclical vomiting syndrome unrelated to migraineOther psychoactive substance use, unspecified, uncomplicated New patient, 30-44min 1 stable chronic or 2 minor; add modifier 95 for video, modifier 93 for phone [facility] 01[place]02/2023 New patient, 30-44min 1 stable chronic or 2 minor; add modifier 95 for video, modifier 93 for phone [facility] 01/02/2023 New patient, 30-44min 1 stable chronic or 2 minor; add modifier 95 for video, modifier 93 for phone [facility] 01/02/2023 New patient, 30-44min 1 stable chronic or 2 minor; add modifier 95 for video, modifier 93 for phone [facility] 01/02/2023 New patient, 30-44min 1 stable chronic or 2 minor; add modifier 95 for video, modifier 93 for phone [facility] 01/02/2023 Estab. patient 30-39min; chronic exacerbation, 2 stable chronic or 1 acute illness add add modifier 95 for video, (do not use for phone, instead use 62566-74) [facility] ([place]) 09/08/2023 Gastro-esophageal reflux disease without esophagitisCyclical [...] (do not use for phone, instead use 28585-12) [facility], ([place]) 09/08/2023 Estab. patient 30-39min; chronic exacerbation, 2 stable chronic or 1 acute illness add add modifier 95 for video, (do not use for phone, instead use 85514-37) [facility] 09/08/2023 Estab. patient 30-39min; chronic exacerbation, 2 stable chronic or 1 acute illness add add modifier 95 for video, (do not use for phone, instead use 94538-21) [facility], ([place] 09/08/2023 Estab. patient 30-39min; chronic exacerbation, 2 stable chronic or 1 acute illness add add modifier 95 for video, (do not use for phone, instead use 31072-27) [facility], ([place] 09/08/2023 Estab. patient 30-39min; chronic exacerbation, 2 stable chronic or 1 acute illness add add modifier 95 for video, (do not use for phone, instead use 21194-10) [facility], ([place] 09/08/2023 Estab. patient 30-39min; chronic exacerbation, 2 stable chronic or 1 acute illness add add modifier 95 for video, (do not use for phone, instead use 59633-65) [facility], ([place] 09[place]08/2023 Estab. patient 30-39min; chronic exacerbation, 2 stable chronic or 1 acute illness add add modifier 95 for video, (do not use for phone, instead use 33127-22) [facility] ([place] 09/08/2023 Estab. patient 30-39min; chronic exacerbation, 2 stable chronic or 1 acute illness add add modifier 95 for video, (do not use for phone, instead use 86933-50) [facility], ([place]) 09/08/2023 Vital Signs Date of Collection Vitals [...] tive Time Current Smoking Status Former smoker 2024-05-07 7 Sex Female History of Procedures Procedures Service Procedure code Service date Servicing provider Phone# New patient, 30-44min 1 stable chronic or 2 minor; add modifier 95 for video, modifier 93 for phone [id number] 2023-01-02 No Data Available No Data Available [...] (do not use for phone, instead use 99981-74) [id number] 2023-09-08 No Data Available No Data Availa [...] [facility] Plan of Care Date [...] decision-maker. (1124F)Continue to see PCP. Follow-up with [facility] as needed for any acute or disease [...] for arthritis pain and inflammation #30 tablet [id number] 10 mg Tab 1 tablet po at [...]
--- OUTSIDE RECORDS SUMMARY | 2024-05-24 15:36 | XMS_ITS | Encounter Summary ---
Author Organization [employer] Address [address] [place] [address] [address] [place] [address] Care Team Providers Care Teacher Resource Name Role Phone Unavailable Primary Care Provider Unavailabl e Encounter Details Date Type Department Care Team ([facility] st Contact Info) Description 11/25/2023 Telephone [facility] [address] [place] [address] Jeff Santana, DDS [address] [place], [place] [id number] Social History Tobacco Use Types Packs/Day Years [...] - 11/25/2023 11:06 AM EDT [facility] at [facility] would like to speak to Shu Aldridge about pt documented in this encounter Plan of Treatment Not on file documented as of this encounter Visit Diagnoses Not on filedocumented in this encounter
--- OUTSIDE RECORDS SUMMARY | 2024-05-24 15:36 | XMS_ITS | Clinical Summary ---
Author Organization [employer] Address [address] [place] [address] [address] [place] [address] Care Team Providers Care Gauge Machine Operator Name Role Phone Unavailable Primary Care Provider [...] Most Recently Relevant to Health Maintenance Insurance [facility] [place] [id number] DENTAL - [facility]
== END 2024-05-24 13:53 | disposition home or self-care (01) ==
LOC: HO.HMCH 13:16
PROVIDERS: PCP Internal Medicine; Visit Provider Internal Medicine
DX: H81.13 Benign paroxysmal vertigo, bilateral (principal); F33.1 Major depressive disorder, recurrent, moderate; F11.20 Opioid dependence, uncomplicated

== ENCOUNTER → 2024-05-24 13:15 | Outpatient (BNVA) | payer MEDICARE, SELFPAY | PROVIDERS: PCP Internal Medicine; Visit Provider Internal Medicine | DX: H81.13 Benign paroxysmal vertigo, bilateral (principal); F33.1 Major depressive disorder, recurrent, moderate; F11.20 Opioid dependence, uncomplicated | CPT/HCPCS: 99212 ==

== ENCOUNTER → 2024-06-27 09:57 | Outpatient (BNVA) | payer MEDICARE, MEDICAID, SELFPAY | PROVIDERS: PCP Internal Medicine; Visit Provider Internal Medicine ==

== ENCOUNTER 2024-08-08 08:33 | Outpatient (REF) | payer MEDICARE, SELFPAY ==
--- OUTSIDE RECORDS SUMMARY | 2024-08-08 08:48 | XMS_ITS | Clinical Summary ---
Author Organization [employer] Address [address] [place] [address] [address] [place] [address] Care Team Providers Care Rn Wellness Name Role Phone Unavailable Primary Care Provider Unavailabl e Allergies No known active allergies Medications chlorhexidine (Peridex) 0.12 % solution SWISH WITH 20ML FOR 30 SECONDS THEN SPIT IN THE MORNING AND AT NIGHT AFTER BRUSHING TEETH AND MEALS DO NOT EAT OR DRINK FOR 30 MINUTES AFTER 08/17/2023 Active cholecalciferol VITAMIN D (Vitamin D-3) 50 MCG (2000 UT) capsule Take by mouth Once per [...] Screening 1969 SDOH Screening 1969 Sigmoidoscopy 1969 Disability Screening 1969 Alcohol/Substance Use Screening 1981 Hepatitis C [...] season) 2023 04/16/2021, 08/23/2020, 08/02/2020 Influenza Vaccine (Season Ended) 2024 04/20/2023, 04/13/2019, 12/28/2015 Tobacco Screening 12/15/2024 12/16/2023 DTaP/Tdap/Td [...] patient's age to complete this topic Meningococcal B Vaccine Aged Out No l onger eligible based on patient's age to complete [...] Most Recently Relevant to Health Maintenance Insurance [facility]
== END 2024-08-08 08:34 | disposition home or self-care (01) ==
LOC: HO.MAMMO 08:33
PROVIDERS: PCP Internal Medicine; Visit Provider Internal Medicine
DX: Z12.31 Encounter for screening mammogram for malignant neoplasm of breast (principal)
CPT/HCPCS: 77063; 77067

== ENCOUNTER → 2024-08-08 08:45 | Outpatient (BNV) | payer MEDICARE, SELFPAY | PROVIDERS: PCP Internal Medicine; Visit Provider Internal Medicine | DX: Z12.31 Encounter for screening mammogram for malignant neoplasm of breast (principal) | CPT/HCPCS: 77063; 77067 ==

== ENCOUNTER 2024-10-31 14:56 | Outpatient (AMB) | payer MEDICARE, MEDICAID, SELFPAY ==
[2024-10-31 14:58] VITALS: BP 122/82; PULSE 90; RESP 18; O2SAT 91; BMI 40.6
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
--- OUTSIDE RECORDS SUMMARY | 2024-10-31 16:38 | XMS_ITS | Clinical Summary ---
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 06/23/2023 Active Encounters Date Type Department Care Team Description 08/09/2024 Telephone [facility] [address] [place] [address] Juli Barrett LLD from Last 3 Months Social History Tobacco Use Types Packs/Day Years [...] 75 12/16/2023 12:42 PM EDT Temperature 36.8 C (98.3 F) 12/16/2023 12:42 PM EDT Respiratory Rate - - Oxygen Saturation - [...] 2023 04/16/2021, 08/23/2020, 08/02/2020 Influenza Vaccine (#1) 2024 , 04/13/2019, 12/28/2015 Tobacco Screening 12/15/2024 12/16/2023 [...] Most Recently Relevant to Health Maintenance Insurance [facility] [place] [address] DENTAL - [facility] DENTAL - [facility] PLAN
--- OUTSIDE RECORDS SUMMARY | 2024-10-31 16:38 | XMS_ITS ---
Author Name MS. Darrius Hammond APRN Address [address] [place] [address] Phone [phone] [facility] Care Team Providers Care Cover Seamer Name Role Phone Miracle Hammond Unavailable [phone] Reason for Referral Not Available Allergies, adverse [...] List Problem Status Onset Date Resolved Date Synopsis History of substance use disorder Active 2023-01-02 N/A Rx: Methadonehx of addiction for more than 20yrs drug of choice Radha - has been doing well with controlled medications/plan of care Cyclic vomiting syndromeGERD (gastroesophageal reflux disease) Active 2023-01-02 N/A managed with Ond ansetron 8 mg Tab Disintegrating 1 tablet orally every 8 hours as needed nauseaTums E-X 750 750 mg Tab Chewable as directed Vitamin D deficiencyVitamin deficiency Active 2023-09-08 N/A Daily Value Mult ivitamin Tab take 1 tablet by mouth dailyTums E-X 750 750 mg Tab Chewable as directedVitamin C 500 mg Tab 1 tab PO dailyVitamin D3 50 MCG (1999 [place]) Cap TAKE 1 CAPSULE BY MOUTH EVERY DAYZinc 50 mg Tab Takes 1 capsule by mouth daily Other problems related to medical facilities and other health care Active 2023-09-08 N/A Remember, if y ou experience any of the following symptoms: More pain than normal More stiff than usual Needing to take more pain medication than usualCall Ana at , we can help! Unsteady gaitRisk for falls Active 2023-09-08 N/A pt in need of cane for support and steadyingwas borrowing one- no longer has access toaddress confirmed CTS (carpal tunnel syndrome)Chronic painRA (rheumatoid arthritis) with Immunodeficiency due to conditions classified elsewhere Active 2023-09-08 N/A CTS: following w ith ortho- says surgery is planned for October4RA: following with rheum- not on any meds at this time- will order anti-inflammatory to help with chronic pain/inflammation 09/08/2023eRx New Meloxicam 15 mg Tab 1 capsule orally QD for arthritis pain and inflammation #30 tablet [id number] 10 mg Tab 1 tablet po at hs prn for muscle spasmsDiclofenac Sodium 1 % Gel 4 grams topically to affected area 4 times per day PRNCBD / THC tinture oil as directedcontinue plan of care and follow up as instructed Immunodeficiency due to: RAweakened immune system, encourage hand washing, avoid large crowds, stay up to date on vaccines (annual flu), monitor for and report early any s/s of infection Encounters Encounters Type Facility Date of Service Diagnosis/Co mplaint New patient, 30-44min 1 stable chronic or 2 minor; add modifier 95 for video, modifier 93 for phone [facility], [place] 01/02/2023 Cyclical vomiting syndrome unrelated to migraineOther psychoactive substance use, unspecified, uncomplicated New patient, 30-44min 1 stable chronic or 2 minor; add modifier 95 for video, modifier 93 for phone [facility], ([place]) 01/02/2023 New patient, 30-44min 1 stable chronic or 2 minor; add modifier 95 for video, modifier 93 for phone [facility] 01/02/2023 New patient, 30-44min 1 stable chronic or 2 minor; add modifier 95 for video, modifier 93 for phone [facility] 01[place]02/2023 New patient, 30-44min 1 stable chronic or 2 minor; add modifier 95 for video, modifier 93 for phone [facility] 01/02/2023 New patient, 30-44min 1 stable chronic or 2 minor; add modifier 95 for video, modifier 93 for phone [facility] 01/02/2023 Estab. patient 30-39min; chronic exacerbation, 2 stable chronic or 1 acute illness add add modifier 95 for video, (do not use for phone, instead use 63136-32) [facility] 09/08/2023 Gastro-esophageal reflux disease without esophagitisCyclical vomiting [...] (do not use for phone, instead use 16638-09) [facility] 09/[place]/2023 Estab. patient 30-39min; chronic exacerbation, 2 stable chronic or 1 acute illness add add modifier 95 for video, (do not use for phone, instead use 00938-93) [facility] 09/08/2023 Estab. patient 30-39min; chronic exacerbation, 2 stable chronic or 1 acute illness add add modifier 95 for video, (do not use for phone, instead use 58001-10) [facility] 09/08/2023 Estab. patient 30-39min; chronic exacerbation, 2 stable chronic or 1 acute illness add add modifier 95 for video, (do not use for phone, instead use 17502-53) [facility] 09/08/2023 Estab. patient 30-39min; chronic exacerbation, 2 stable chronic or 1 acute illness add add modifier 95 for video, (do not use for phone, instead use 87375-56) [facility] 09/08/2023 Estab. patient 30-39min; chronic exacerbation, 2 stable chronic or 1 acute illness add add modifier 95 for video, (do not use for phone, instead use 17119-42) [facility] [place] 09/08/2023 Estab. patient 30-39min; chronic exacerbation, 2 stable chronic or 1 acute illness add add modifier 95 for video, (do not use for phone, instead use 41724-73) [facility] [place] 09/08/2023 Estab. patient 30-39min; chronic exacerbation, 2 stable chronic or 1 acute illness add add modifier 95 for video, (do not use for phone, instead use 16926-45) [facility] ([place] 09/08/2023 Vital Signs Date of Collection Vitals [...] tive Time Current Smoking Status Former smoker 2024-10-08 5 Sex Female History of Procedures Procedures Service Procedure code Service date Servicing provider Phone# New patient, 30-44min 1 stable chronic or 2 minor; add modifier 95 for video, modifier 93 for phone [id number] 2023-01-02 No Data Available No Data Available BMI obtained (3008F) 3008F 2023-01-02 No Data Availab le No Data Available Advance care planning discussed and documented in the medical record beneficiary/patient did not wish to or was [...] (do not use for phone, instead use 41246-86) [id number] 2023-09-08 No Data Available No Data Availa ble Medication Review by prescribing provider or pharmacist documented (1160F) 1160F 2023-09-08 No Data Available No Data Josie ilable Advance Care Directive Advance care planning discussion documented in the medical record (1158F) 1158F 2023-09-08 No Data Available No Data Availa ble Advance care planning discussed and documented advance care plan or surrogate decision-maker was [...] Cyclic vomiting synd romeRx: OndansetronSubstance use disorderRx: MethadoneMebarron was prior addicted to Radha that she was on for 20 years 2023-09-08 10:11:47 Cyclic vomiting synd romeGERD (gastroesophageal reflux disease)History of substance use disorderCTS (carpal tunnel syndrome)Chronic painRA (rheumatoid arthritis)Vitamin D deficiencyVitamin deficiencyOther problems related to medical facilities [facility] Plan of Care Date of Service Plans 2023-01-02 08:34:49 BMI obtained (3008F) Televideo new patient, 30-44min 1 stable chronic or 2 minor; add modifier 95Pain Assessment - Pain Documented (1125F)Advance care planning discussed and documented in the medical record beneficiary/patient did not wish to or was unable to provide an advance care plan or name a surrogate decision-maker. (1124F)Continue to see PCP. Follow-up with [facility] as needed for any acute or disease [...] modifier 95Advance care planning discussed and documented advance care plan or surrogate decision-maker was [...] for arthritis pain and inflammation #30 tablet [id number] 10 mg Tab 1 tablet po at [...] you experience any of the following symptoms: More pain than normal More stiff than usual Needing to take more pain medication than usualCall [facility] , we [facility]!pt in need [...] next PCP appt and follow up labs Annie
== END 2024-10-31 16:04 | disposition home or self-care (01) ==
LOC: HO.HMCH 14:57
PROVIDERS: PCP Internal Medicine; Visit Provider Internal Medicine
DX: F33.1 Major depressive disorder, recurrent, moderate (principal); F11.20 Opioid dependence, uncomplicated; E66.01 Morbid (severe) obesity due to excess calories; Z68.41 Body mass index [BMI] 40.0-44.9, adult; H81.13 Benign paroxysmal vertigo, bilateral; M25.531 Pain in right wrist; F41.1 Generalized anxiety disorder

== ENCOUNTER → 2024-10-31 14:56 | Outpatient (BNVA) | payer MEDICARE, MEDICAID, SELFPAY | PROVIDERS: PCP Internal Medicine; Visit Provider Internal Medicine | DX: H81.13 Benign paroxysmal vertigo, bilateral (principal); M25.531 Pain in right wrist; F33.1 Major depressive disorder, recurrent, moderate; F11.20 Opioid dependence, uncomplicated; F41.1 Generalized anxiety disorder; E66.01 Morbid (severe) obesity due to excess calories; Z68.41 Body mass index [BMI] 40.0-44.9, adult; Z71.3 Dietary counseling and surveillance | CPT/HCPCS: 96127; 99212 ==

== ENCOUNTER 2025-01-02 10:05 | Outpatient (AMB) | payer MEDICARE, SELFPAY ==
[2025-01-02 10:08] VITALS: BP 130/86; PULSE 65; O2SAT 94; BMI 40.4
--- NOTE | 2025-01-02 10:08 | A.OFFPC_ITS ---
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 Accompanied by: Self / Same As Patient Allergies No Known Allergies Allergy (Verified 01/02/25 10:21) Medication List - Last Reconciled 01/02/25 by Cira Corral MD ascorbate calcium (vitamin C) 500 mg PO DAILY calcium carbonate (Tums) 300 mg PO BID [cbd oil buccal] cetirizine (Zyrtec) 10 mg PO DAILY chlorhexidine gluconate 0.12% PO cholecalciferol (vitamin D3) 50 mcg PO DAILY 90 days cyclobenzaprine 10 mg PO BEDTIME PRN 7 days diclofenac sodium 1% (Arthritis Pain (diclofenac)) 2 grams topical QID 30 days meclizine 50 mg PO BID methadone 110 mg PO DAILY multivitamin 1 tab PO DAILY ondansetron 8 mg PO Q12H PRN 7 days [Shower chair As directed] [thc gummies buccal] zinc acetate (Galzin) 50 mg PO DAILY Tobacco use date assessed: 01/02/25 Dental Screening Dental Screen Date: 01/02/25 Did you have a dental visit in the last 12 months?: No Did you have a dental problem in the last 6 months where you did not have access to dental care?: No Was dental information given to patient?: No HPI HPI Comments History of Present Illness Details The patient is a 54-year-old female presenting with an annual physical exam. Her last Tdap vaccine was in 2015, a mammogram this year was normal, and a Pap smear in 2022 was HPV negative. A colonoscopy was attempted in 2020 but was not performed because her oxygen saturation was too low. She reports she has since quit smoking and believes her oxygen levels are now adequate for the procedure. The preparation for the 2020 attempt was noted as poor, and internal hemorrhoids were found. The patient reports having challenging, bilateral, and intermittent vertigo. She was unable to attend vestibular therapy due to insurance issues and has been doing exercises she found online. She previously had wrist pain, and an X-ray showed no fracture, suggesting a sprain; the pain has since resolved. She is actively managing her weight by walking two and a half miles daily for the past 55 days and attempting to eat less, particularly at night. She previously considered gastric sleeve surgery but was not covered by her insurance. Past surgical history includes a lumpectomy, foot surgery, and hernia repair. Her medications include vitamin C, TUMS, CBD oil, Zyrtec as needed, vitamin D, meclizine as needed for vertigo, methadone 110 mg, multivitamins, and zinc. She has no known drug allergies. Family history is significant for a father with diabetes and a mother with antiphospholipid antibody syndrome and a thyroid condition. Her sister at age 57 from aggressive ovarian cancer. [facility] Medical History Vertigo ELIAZAR (generalized anxiety disorder) Polyarthralgia Screening for diabetes mellitus Anxiety and depression Nausea & vomiting Obesity (BMI 30-39.9) Cigarette smoker motivated to quit Surgical History Hx of colonoscopy H/O hernia repair H/O lumpectomy H/O foot surgery Family History (Updated 01/02/25 @ 10:28 by Cira Corral MD) Sister Ovarian cancer, Onset Age: 55 Colon cancer Paternal Grandmother History of breast cancer Father Diabetes Family/Other Substance use disorder Mental health disorder Mother Antiphospholipid antibody syndrome Thyroid condition Social History Household Members: Children Household Members Other:: Housing: Apartment Alcohol intake: current Alcohol intake frequency: holidays/special occasions only Alcohol type: wine Patient Tobacco Use Status: Former Tobacco user Tobacco use type: Cigarette e-Cigarette/Vaping Use: Currently Using Second Hand Smoke Exposure: Yes Substance Use Type: Marijuana Advance Directives Date on File: 06/07/20 service: No Current occupational status: disabled Current occupation: right hand dominant Sexual orientation: Straight/Heterosexual Gender identity: Female Cognitive needs: No Hearing needs: No Vision needs: Yes (reading glasses) Female Reproductive History Menstrual Age of Menarche: 15 Questionnaire Thrive Questionnaire Date Thrive assessed: 10/29/24 I am a: Patient What is your living situation today?: I have a place to live, but I am worried about losing it in the future Within the past 12 months, did the food you bought not last and you didn't have the money to get more?: Sometimes True Within the past 12 months, did you worry whether your food would run out before you got money to buy more?: Often true Do you have trouble paying for medicines?: Yes Do you have trouble getting transportation to medical appointments?: Yes Do you have trouble paying your heating and electricity bill?: Yes Do you have trouble taking care of your child, family member or friend?: No Do you have trouble with day-to-day activities such as bathing, preparing meals, shopping, managing finances, etc.?: Yes Are you currently unemployed and looking for a job?: No Are you interested in more education?: Yes THRIVE Score: 5 AUDIT C Alcohol Use Questionnaire (AUDIT-C) 1. How often do you have a drink containing alcohol?: Monthly or less 2. How many drinks containing alcohol do you have on a typical day when you are drinking?: 1 or 2 3. How often do you have six or more drinks on one occasion?: Never Total Score: 1 Score Reviewed/Action Taken: No ELIAZAR-7 AMB Questionnaire ELIAZAR-7 Date ELIAZAR - 7 assessed: 10/31/24 Source: Developed by Drs. Matty Hartman, Gia Limon, Perfecto Santamaria and colleagues, with an educational walter from [employer]. Review of Systems Const All systems reviewed & are unremarkable except as noted in HPI and below Card Denies chest pain at rest, Denies chest pain with activity, Denies edema, Denies irregular heart rhythm, Denies claudication, Denies dyspnea, Denies dyspnea on exertion, Denies orthopnea, Denies paroxysmal nocturnal dyspnea and Denies slow heart rate Resp Denies cough, Denies dyspnea and Denies dyspnea on exertion Physical exam (Primary Care) Vital Signs: Last Vital Signs Pulse 65 01/02/25 10:08 BP 130/86 01/02/25 10:08 Pulse Ox 94 01/02/25 10:08 Oxygen Delivery Method Room Air 01/02/25 10:08 BMI result Body Mass Index 40.4 BMI Assessment/Plan discussion: High BMI High, discussed plan: lifestyle, weight reduction, dietary and physical activity Tobacco/Smoking Status: Tobacco use Status Tobacco use date assessed 01/02/25 01/02/25 10:15 Patient Tobacco Use Status Former Tobacco user 01/02/25 10:15 Tobacco use type Cigarette 01/02/25 10:15 e-Cigarette/Vaping Use Currently Using 01/02/25 10:15 Thrive Assessment: Date of Thrive Assessment Date Thrive assessed 10/29/24 01/02/25 10:15 HENMT Head: Yes normal to inspection, Yes normocephalic and Yes atraumatic Ears: external ears normal Eyes General: appearance normal, both eyes and all related structures Eyelids: Yes eyelids normal Conjunctivae: conjunctivae normal Neck Neck: Yes normal visual inspection and Yes supple Resp Effort & Inspection: normal respiratory effort Auscultation: clear to auscultation bilaterally Cardio Jugular venous distension: no JVD Rate: regular rate Rhythm: regular rhythm Heart sounds: S1 normal heart sound present and S2 normal heart sound present GI Inspection: Yes normal to inspection Palpation (GI): Soft to palpation and nontender Auscultation: normal bowel sounds Skin General skin exam: no rashes or lesions noted Neuro General: no focal motor deficits Extrem General: Yes full ROM Psych Appearance: grossly normal Office Procedures Flu Questionnaire Does the patient have a severe egg allergy?: No Does the patient have severe life threatening allergies?: No Does the patient have a fever or illness today?: No Has the patient ever had Guillain-Jarales Syndrome?: No Has the patient ever had any past reaction to a flu shot?: No Immunizations Fluarix [id number] (PF) 45 mcg (15 mcg x 3)/0.5 mL IM syringe Performing Provider: Cira Corral MD [facility] Administered by: ANA Lugo on 01/02/25 10:43 Dose Route Admin Location Dispensed Lot Number Expiration Date [facility] 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 0.5 mL IM Left Deltoid 0.5 mL [id number] 09/05/25 [id number] [employer] VIS Given Date VIS Provided VIS Publication Date 01/02/25 Single Vaccine 24 Eligibility Eligibility Date Funding Source Not [facility] Eligible 01/02/25 Private Coding Level of Care Code Est Pt Prev Care 40-64y(62852) Diagnoses Physical exam Z00.00 Morbid obesity with BMI of 40.0-44.9, adult E66.01; Z68.41 Time Spent (min) 30 Assessment & Plan Assessment & Plan (1) Physical exam: Code(s): Z00.00 - Encounter for general adult medical examination without abnormal findings Category: Medical (2) Morbid obesity with BMI of 40.0-44.9, adult: Code(s): E66.01 - Morbid (severe) obesity due to excess calories; Z68.41 - Body mass index [BMI] 40.0-44.9, adult Category: Medical Plan Plan 1. Encounter for general adult medical examination without abnormal findings Z00.00 The patient presents for an annual physical exam. The plan includes administering an influenza vaccine today, as the patient consented. Routine labs will be ordered to check cholesterol, blood sugar, and kidney and liver function. The patient is overdue for a colonoscopy, as a previous attempt in 2020 was aborted due to low oxygen saturation. She has since quit smoking and her oxygen levels have improved. A referral will be sent for a screening colonoscopy. 2. Morbid Obesity The patient is motivated to lose weight and has initiated a daily walking regimen, currently at 2.5 miles per day, for the last 55 days. She is also attempting dietary modifications. Bariatric surgery was explored but is not covered by her insurance. The plan is to encourage continuation of her current efforts and re-evaluate her weight at the next visit. Orders: Orders Influenza [id number] Immunization Today Z23 - Encounter for immunization Comprehensive [place]. Panel Fast Today Z00.00 - Encounter for general adult medical examination without abnormal findings Lipid Panel Today E78.5 - Hyperlipidemia, unspecified, Z00.00 - Encounter for general adult medical examination without abnormal findings Referrals Gastroenterology Referral Z12.11 - Encounter for screening for malignant neoplasm of colon
--- OUTSIDE RECORDS SUMMARY | 2025-01-02 12:02 | XMS_ITS ---
Author Name MS. 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 Unsteady gaitRisk [...] for arthritis pain and inflammation #30 tablet [id number] 10 mg Tab 1 tablet po at [...] 95 for video, modifier 93 for phone [facility]02[place]2023 Cyclical vomiting syndrome unrelated to migraineOther psychoactive substance use, unspecified, uncomplicated New patient, 30-44min 1 stable chronic or 2 minor; add modifier 95 for video, modifier 93 for phone [facility] 01/02/2023 New patient, 30-44min 1 stable chronic or 2 minor; add modifier 95 for video, modifier 93 for phone [facility] 01/02/2023 New patient, 30-44min 1 stable chronic or 2 minor; add modifier 95 for video, modifier 93 for phone [facility] 01/02/2023 New patient, 30-44min 1 stable chronic or 2 minor; add modifier 95 for video, modifier 93 for phone [facility] 01/02/2023 New patient, 30-44min 1 stable chronic or 2 minor; add modifier 95 for video, modifier 93 for phone [facility] 01/02/2023 Estab. patient 30-39min; chronic exacerbation, 2 stable chronic or 1 acute illness add add modifier 95 for video, (do not use for phone, instead use 58558-52) [facility] 09/08/2023 Gastro-esophageal reflux disease without esophagitisCyclical [...] (do not use for phone, instead use 08550-92) [facility] 09/08/2023 Estab. patient 30-39min; chronic exacerbation, 2 stable chronic or 1 acute illness add add modifier 95 for video, (do not use for phone, instead use 96684-81) [facility] [place] 09/08/2023 Estab. patient 30-39min; chronic exacerbation, 2 stable chronic or 1 acute illness add add modifier 95 for video, (do not use for phone, instead use 35006-81) [facility] [place] 09/08/2023 Estab. patient 30-39min; chronic exacerbation, 2 stable chronic or 1 acute illness add add modifier 95 for video, (do not use for phone, instead use 28041-90) [facility] [place] 09/08/2023 Estab. patient 30-39min; chronic exacerbation, 2 stable chronic or 1 acute illness add add modifier 95 for video, (do not use for phone, instead use 66218-69) [facility] [place] 09/08/2023 Estab. patient 30-39min; chronic exacerbation, 2 stable chronic or 1 acute illness add add modifier 95 for video, (do not use for phone, instead use 23169-18) [facility] [place] 09/08/2023 Estab. patient 30-39min; chronic exacerbation, 2 stable chronic or 1 acute illness add add modifier 95 for video, (do not use for phone, instead use 47930-55) [facility] [place] 09/08/2023 Estab. patient 30-39min; chronic exacerbation, 2 stable chronic or 1 acute illness add add modifier 95 for video, (do not use for phone, instead use 25513-95) [facility] ([place]) 09/08/2023 Vital Signs Date of Collection Vitals [...] tive Time Current Smoking Status Former smoker 2024-12-08 7 Sex Female History of Procedures Procedures Service Procedure code Service date Servicing provider Phone# New patient, 30-44min 1 stable chronic or 2 minor; add modifier 95 for video, modifier 93 for phone [id number] 2023-01-02 No Data Available No Data Available [...] (do not use for phone, instead use [id number]) [id number] 2023-09-08 No Data Available No Data Availa [...] related to medical [facility] Plan of Care Date of [...] decision-maker. ([id number])Continue to see PCP. [facility] or disease [...] for arthritis pain and inflammation #30 tablet [id number] 10 mg Tab 1 tablet po at [...] to take more pain medication than usualCall [facility] , we [facility]!pt in [...]
--- OUTSIDE RECORDS SUMMARY | 2025-01-02 12:03 | XMS_ITS | Clinical Summary ---
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
== END 2025-01-02 10:39 | disposition home or self-care (01) ==
LOC: HO.HMCH 10:06
PROVIDERS: PCP Internal Medicine; Visit Provider Internal Medicine
DX: Z00.00 Encounter for general adult medical examination without abnormal findings (principal); E66.01 Morbid (severe) obesity due to excess calories; Z68.41 Body mass index [BMI] 40.0-44.9, adult; Z23 Encounter for immunization

== ENCOUNTER → 2025-01-02 10:05 | Outpatient (BNVA) | payer MEDICARE, SELFPAY | PROVIDERS: PCP Internal Medicine; Visit Provider Internal Medicine | DX: Z00.00 Encounter for general adult medical examination without abnormal findings (principal); E66.01 Morbid (severe) obesity due to excess calories; Z68.41 Body mass index [BMI] 40.0-44.9, adult; Z23 Encounter for immunization | CPT/HCPCS: 90471; 90656; 99396 ==

== ENCOUNTER 2025-01-09 10:54 | Outpatient (REF) | payer MEDICARE, SELFPAY ==
[2025-01-09 12:34] LABS: Alanine Aminotransferase 18 U/L (0-31); Albumin Level 4.4 g/dL (3.5-5.0); Alkaline Phosphatase 108 U/L (39-117); Anion Gap 7 (12-20); Aspartate Amino Transferase 19 U/L (5-31); Blood Urea Nitrogen 9 mg/dL (9-16); Calcium 8.9 mg/dL (8.4-10.2); Carbon Dioxide 33 mmol/L (22-29); Chloride 103 mmol/L (96-108); Cholesterol 215 mg/dL (<200); Estimated Glomerular Filt Rate > 60; HDL Cholesterol 40 mg/dL (>40); Potassium 4.4 mmol/L (3.3-5.1); Sodium 139 mmol/L (135-145); Total Protein 7.4 g/dL (6.5-8.0); Triglycerides 184 mg/dL (<150)
== END 2025-01-09 10:55 | disposition home or self-care (01) ==
LOC: HO.LAB 10:54
PROVIDERS: PCP Internal Medicine; Visit Provider Internal Medicine
DX: Z00.00 Encounter for general adult medical examination without abnormal findings (principal); E78.5 Hyperlipidemia, unspecified
CPT/HCPCS: 36415; 80053; 80061